=== PATIENT | male | born 1950 | race Caucasian/White ===

== ENCOUNTER → 2021-04-27 09:49 | Outpatient (BNVA) | payer MEDICARE, MEDICAID, SELFPAY | PROVIDERS: Family Provider Nurse Practitioner; Visit Provider Family Medicine | DX: E78.5 Hyperlipidemia, unspecified (principal); I10 Essential (primary) hypertension; J44.9 Chronic obstructive pulmonary disease, unspecified; M19.90 Unspecified osteoarthritis, unspecified site; G47.00 Insomnia, unspecified | CPT/HCPCS: 80053; 80061; 82043; 85025 ==

== ENCOUNTER → 2021-06-11 11:34 | Outpatient (BNVA) | payer MEDICARE, MEDICAID, SELFPAY | PROVIDERS: Family Provider Nurse Practitioner; PCP Family Medicine; Visit Provider Internal Medicine Cardiovascular Disease | DX: R06.02 Shortness of breath (principal); I50.33 Acute on chronic diastolic (congestive) heart failure; R06.00 Dyspnea, unspecified | CPT/HCPCS: 80048; 83880 ==

== ENCOUNTER 2021-07-16 12:30 | Outpatient (CLI) | payer MEDICARE, MEDICAID, SELFPAY ==
--- NOTE | 2021-07-16 13:30 | USCV_ITS ---
Maximiliano Howard Age: 70 Gender: M : 1950 Exam Date: 07/16/2021 12:50 Ordering Phys: Sasha Gordon MD ([email or web address]) Technologist: Exam Location: [facility] [place] Indication: DYSPNEA BP: 142 / 74 HR: 92 Rhythm: Sinus Technical Quality: Technically difficult study MEASUREMENTS (Male / Female) Normal Values 2D ECHO LV Diastolic Diameter PLAX 4.2 cm 4.2 - 5.9 / 3.9 - 5.3 cm LV Systolic Diameter PLAX 2.6 cm IVS Diastolic Thickness 1.3 cm 0.6 - 1.0 / 0.6 - 0.9 cm IVS Systolic Thickness 1.7 cm LVPW Diastolic Thickness 1.1 cm 0.6 - 1.0 / 0.6 - 0.9 cm LVPW Systolic Thickness 1.7 cm LVOT Diameter 2.1 cm LV Ejection Fraction 2D Teich 67.4 % LA Diameter 2.9 cm DOPPLER AV Peak Velocity 131.0 cm/s LVOT Peak Velocity 65.0 cm/s AV Area Cont Eq vti 1.4 cm squared AV Area Cont Eq pk 1.7 cm squared MV Area PHT 5.0 cm squared Mitral E to A Ratio 0.9 MV E' Velocity 43.0 cm/s TR Peak Velocity 267.0 cm/s TR Peak Gradient 28.5 mmHg Right Atrial Pressure 3.0 mmHg Pulmonary Artery Systolic Pressu 31.5 mmHg FINDINGS Left Ventricle Normal LV size with a diminished ejection fraction of 45%. Diffuse hypokinesia of the septum and the anteroseptal segments. Technically difficult study only epigastric views are obtained. Mild concentric left ventricular hypertrophy Right Ventricle Normal RV size ejection fraction.catheter/pacemaker wire visualized in the right ventricle. Right Atrium Catheter/pacemaker wire in the right atrial cavity. Left Atrium Normal left atrial size Mitral Valve No gross abnormalities noted Aortic Valve No gross abnormalities noted Tricuspid Valve No gross abnormalities noted Pulmonic Valve Structurally normal pulmonic valve without significant stenosis. There is no pulmonic regurgitation. Pericardium Left-sided pleural effusion is present. No pericardial effusion Aorta Normal ascending aorta dimension. CONCLUSIONS Normal LV size with a diminished ejection fraction of 45%. Diffuse hypokinesia of the septum and the anteroseptal segments. Mild concentric left ventricular hypertrophy Pacemaker wire was noted in the right atrium and right ventricle. Possible left-sided pleural effusion No intracardiac masses or pericardial effusion. No previous studies are available for comparison Dr Sasha Gordon MD [facility] (Electronically Signed) Final Date: 16 July 2021 22:41 S
== END 2021-07-16 12:31 | disposition home or self-care (01) ==
PROVIDERS: PCP Family Medicine; Visit Provider Internal Medicine Cardiovascular Disease
DX: R06.00 Dyspnea, unspecified (principal); R06.02 Shortness of breath; Z95.0 Presence of cardiac pacemaker; I51.7 Cardiomegaly
CPT/HCPCS: 93306

== ENCOUNTER 2021-09-29 07:03 | Outpatient (CLI) | payer MEDICARE, MEDICAID, SELFPAY ==
--- NOTE | 2021-09-29 07:44 | NMCV_ITS ---
NM jane perf SPECT r/s* [id number] Maximiliano Howard Age: 70 Gender: M : 1950 Exam Date: 09/29/2021 09:06 Ordering Phys: Sasha Gordon MD ([email or web address]) Technologist: SHERRILL De Jesus Exam Location: [facility] Indications: SOB STRESS TEST Please see separate stress test report in [facility]any for full findings IMAGE PROTOCOL Rest/Stress 1 Lexiscan Day Radiopharmaceutical Dose (mCi) Administration Site Administered by Rest: Tc-99m 10.9 IV SHERRILL De Jesus Sestamibi Stress:Tc-99m 32.6 IV SHERRILL De Jesus Sestamikuldeep Rest: 29-Sep-2021 60 Discovery 630 Stress: 29-Sep-2021 45 Discovery 630 0.4mg Lexiscan. Supine position only as patient was unable to lay prone. SPECT RESULTS Technical Quality: Excellent Raw Data Analysis: Normal Image Corrections: No attenuation or motion correction applied Summed Stress Score: 6 Summed Rest Score: 8 Summed Difference Score: 1 PERFUSION FINDINGS Moderate area of decreased tracer uptake was noted in the basal, mid and apical inferior, mid anteroseptal and apical segments. A subtle area of reversibility was noted in the apical anterior region FUNCTIONAL RESULTS (calculated via Gated SPECT) Stress Image LV EF (%): 49 Stress EDV (mL):101 TID: 1.05 Stress ESV (mL):52 FUNCTIONAL FINDINGS: Segmental wall motion analysis revealed moderate hypokinesia of the apex with mild hypokinesia of the septum IMPRESSIONS 1. Myocardial perfusion imaging revealing moderate area of persistent decreased tracer uptake in the inferior, mid anteroseptal and apical regions with a subtle area reversibility in the apical anterior region suggesting myocardial scarring in the region of the left anterior descending and right coronary arteries with a very small area of liberty-infarction ischemia in the distribution of the left anterior descending artery. 2. Slightly diminished LV ejection fraction of 49% 3. Segmental wall motion abnormalities as mentioned above 4. LV cavity appears to be mildly dilated with an LV end-diastolic volume of 52 mL. No similar previous studies are available for comparison Dr Sasha Gordon MD [facility] (Electronically Signed) Final Date: 29 September 2021 13:55 S
--- NOTE | 2021-09-29 07:44 | ECG_ITS ---
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 Interpretive Statements NAME OF STUDY: LEXISCAN SESTAMIBI STRESS TEST INDICATION: Abnormal Echo PROCEDURE: At the baseline, the EKG revealed 100% a sensed, V paced rhythm. The baseline blood pressure was 138/82 mm Hg with a heart rate of 69 beats/min. Lexiscan was infused over a period of 20 seconds. A total of 0.4 milligrams of Lexiscan was infused. The stress phase was continued for a total of 5 minutes. Heart rate at the end of the stress phase was 88 with a blood pressure 144/69. The EKG at the peak infusion revealed no significant changes few PACs and short runs of PAT's were noted. Sestamibi was injected 20 seconds after the Lexiscan infusion. Blood pressure at the end of the recovery phase was 138/71 with a heart rate of 82 per minute. CONCLUSION: 1. No significant EKG changes with the LexiScan infusion 2. No LexiScan induced atrial arrhythmias were noted. 3. Normal blood pressure and heart rate response 4. Sestamibi/sestamibi perfusion scan pending; see separate report. Electronically Signed On 10-02-2021 11:47:06 PLASTIC STRAIGHTENING ROLL OPERATOR by Sasha Gordon M.D. [id number]
[2021-09-29 07:48] VITALS: BMI 17.1
[2021-09-29] MEDS: regadenoson 0.4 Mg/5 ml Syringe IVP (10:30)
[2021-09-29 10:53] VITALS: BP 136/71; PULSE 64
== END 2021-09-29 07:04 | disposition home or self-care (01) ==
LOC: RAD 07:12 → CDL 07:48
PROVIDERS: PCP Family Medicine; Visit Provider Internal Medicine Cardiovascular Disease
DX: R06.02 Shortness of breath (principal)
CPT/HCPCS: 78452; 93017; A9500; J2785

== ENCOUNTER 2021-11-21 18:12 | Emergency (ER) | payer MEDICARE, MEDICAID, SELFPAY ==
[2021-11-21 18:22] VITALS: BP 147/93; PULSE 61; RESP 18; TEMP 37.1; O2SAT 99; BMI 17.7
[2021-11-21 18:32] VITALS: BP 145/80; PULSE 70; RESP 19; O2SAT 93
--- NOTE | 2021-11-21 19:02 | CTR_ITS ---
PROCEDURE INFORMATION: Exam: CT Head Without Contrast Exam date and time: 11/21/2021 7:02 PM Age: 71 years old Clinical indication: Injury or trauma; Blunt trauma (contusions or hematomas); Without loss of consciousness; Patient HX: Fall from standing; Additional info: Syncope fall TECHNIQUE: Imaging protocol: Computed tomography of the head without contrast. Radiation optimization: All CT scans at this facility use at least one of these dose optimization techniques: automated exposure control; mA and/or kV adjustment per patient size (includes targeted exams where dose is matched to clinical indication); or iterative reconstruction. COMPARISON: CT head wo con* [id number] 07/12/2017 9:38 AM RADIATION DOSE METRICS: Total DLP (mGy-cm): 891.66 FINDINGS: Brain: No hemorrhage. Mild diffuse cerebral atrophy and sequela of chronic small vessel ischemic disease. No mass effect. Cerebral ventricles: No ventriculomegaly. Paranasal sinuses: Visualized sinuses are unremarkable. No fluid levels. Mastoid air cells: Visualized mastoid air cells are well aerated. Bones/joints: Unremarkable. No acute fracture. Soft tissues: Unremarkable. CT/CT head wo con* [id number] IMPRESSION: No acute intracranial abnormality.
--- NOTE | 2021-11-21 19:02 | CTR_ITS ---
PROCEDURE INFORMATION: Exam: CT Cervical Spine Without Contrast Exam date and time: 11/21/2021 7:02 PM Age: 71 years old Clinical indication: Injury or trauma; Blunt trauma; Patient HX: Fall from standing TECHNIQUE: Imaging protocol: Computed tomography images of the cervical spine without contrast. Radiation optimization: All CT scans at this facility use at least one of these dose optimization techniques: automated exposure control; mA and/or kV adjustment per patient size (includes targeted exams where dose is matched to clinical indication); or iterative reconstruction. COMPARISON: CT head wo con* [id number] 11/21/2021 8:27 PM RADIATION DOSE METRICS: Total DLP (mGy-cm): 357.43 FINDINGS: Bones/joints: No acute fracture. Grade 1 anterolisthesis of C4 on C5. Discs/Spinal canal/Neural foramina: No significant disc protrusion. No severe spinal canal stenosis. Lungs: Bullous emphysematous changes at the lung apices. Soft tissues: Unremarkable. CT/CT cervical spin wo con* [id number] IMPRESSION: No acute findings.
--- NOTE | 2021-11-21 19:02 | CTR_ITS ---
PROCEDURE INFORMATION: Exam: CT Chest With Contrast; Diagnostic Exam date and time: 11/21/2021 7:02 PM Age: 71 years old Clinical indication: Injury or trauma; Upper; Blunt trauma (contusions or hematomas); Prior surgery; Surgery date: 6+ months; Surgery type: Pacer , lung , hernia; Patient HX: Fall from standing C/O L back/flank pain; Additional info: Fall upper and lower back left flank pain TECHNIQUE: Imaging protocol: Diagnostic computed tomography of the chest with contrast. Radiation optimization: All CT scans at this facility use at least one of these dose optimization techniques: automated exposure control; mA and/or kV adjustment per patient size (includes targeted exams where dose is matched to clinical indication); or iterative reconstruction. Contrast material: OMNI 300; Contrast volume: 75 ml; Contrast route: INTRAVENOUS (IV); COMPARISON: CT Chest/Abdomen/Pelvis w IV* 07/12/2017 9:43 AM RADIATION DOSE METRICS: Total DLP (mGy-cm): 1157.89 FINDINGS: Tubes, catheters and devices: Pacemaker. Lungs: Emphysematous changes. Right upper lobe 9.2 mm pulmonary nodule, new compared to prior exam, series 2, image 24. Bilateral dependent emphysematous changes. Stable right upper lobe calcified granuloma. Biapical pleuroparenchymal scarring Pleural spaces: Trace left pleural effusion. Heart: Coronary artery atherosclerotic calcifications. Aorta: Ascending thoracic aorta somewhat prominent measuring 3.8 cm. Lymph nodes: Unremarkable. No enlarged lymph nodes. Bones/joints: Unremarkable. No acute fracture. Soft tissues: Unremarkable. Chest at 3 months, PET/CT, or biopsy. (Reference: Chela) 6. Bilateral dependent emphysematous changes. 7. Pacemaker. 8. Coronary artery atherosclerotic calcifications. REFERENCES: Chela Potts et al. Guidelines for Management of Incidental Pulmonary Nodules Detected on CT Images: From the Fleischner Society 2017. Radiology. 2017;284(1):228-243. PROCEDURE INFORMATION: Exam: CT Abdomen And Pelvis With Contrast Exam date and time: 11/21/2021 7:02 PM Age: 71 years old Clinical indication: Injury or trauma; Upper; Blunt trauma (contusions or hematomas); Prior surgery; Surgery date: 6+ months; Surgery type: Pacer , lung , hernia; Patient HX: Fall from standing C/O L back/flank pain; Additional info: Fall upper and lower back left flank pain TECHNIQUE: Imaging protocol: Computed tomography of the abdomen and pelvis with contrast. Radiation optimization: All CT scans at this facility use at least one of these dose optimization techniques: automated exposure control; mA and/or kV adjustment per patient size (includes targeted exams where dose is matched to clinical indication); or iterative reconstruction. Contrast material: OMNI 300; Contrast volume: 75 ml; Contrast route: INTRAVENOUS (IV); COMPARISON: CT Chest/Abdomen/Pelvis w IV* 07/12/2017 9:43 AM RADIATION DOSE METRICS: Total DLP (mGy-cm): 1157.89 FINDINGS: Liver: Normal. No mass. Gallbladder and bile ducts: Normal. No calcified stones. No ductal dilation. Pancreas: Normal. No ductal dilation. Spleen: Normal. No splenomegaly. Adrenal glands: Normal. No mass. Kidneys and ureters: Bilateral renal cysts, negative for follow-up advised. Stomach and bowel: Unremarkable. No obstruction. No mucosal thickening. Appendix: No evidence of appendicitis. Intraperitoneal space: Unremarkable. No free air. No significant fluid collection. Vasculature: Unremarkable. No abdominal aortic aneurysm. Lymph nodes: Unremarkable. No enlarged lymph nodes. Urinary bladder: Unremarkable as visualized. Reproductive: Unremarkable as visualized. Bones/joints: Unremarkable. No acute fracture. Soft tissues: Unremarkable. CT/CT chest abd pel w con* IMPRESSION: 1. Negative for traumatic injury to the chest 2. Ascending thoracic aorta somewhat prominent measuring 3.8 cm. 3. Trace left pleural effusion. 4. Emphysematous changes. 5. Right upper lobe 9.2 mm pulmonary nodule, new compared to prior exam, series 2, image 24. For both low risk and high risk patients, consider CT IMPRESSION: 1. Negative for traumatic injury to the abdomen or pelvis. 2. Bilateral renal cysts, negative for follow-up advised.
--- NOTE | 2021-11-21 19:03 | ECG_ITS ---
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 Measurements Intervals [place] Rate: 68 P: 84 AL: 187 QRS: -83 QRSD: 173 T: 85 QT: 462 QTc: 495 Interpretive Statements A sense V paced rhythm ELECTRONIC VENTRICULAR PACEMAKER ABNORMAL RHYTHM ECG Compared to ECG 11/05/2015 11:57:08 No significant changes Electronically Signed On 11-22-2021 12:08:43 PASSENGER RELATIONS REPRESENTATIVE by China Donnelly M.D. [id number]
[2021-11-21 19:11] LABS: Basophils # 0.1 10^3/uL (0.0-0.1); Basophils % 0.8 %; Eosinophils # 0.1 10^3/uL (0.0-0.8); Eosinophils % 1.4 %; Hematocrit 45.1 % (42.0-52.0); Hemoglobin 14.8 g/dL (11.7-16.6); Lymphocytes # 1.6 10^3/uL (0.8-4.8); Lymphocytes % 18.4 %; Mean Corpuscular HGB Conc 32.8 g/dL (30.0-36.0); Mean Corpuscular Hemoglobin 32.9 pg (28.0-34.0); Mean Corpuscular Volume 100.2 fl (80-94); Mean Platelet Volume 10.5 fL (7.4-10.4); Neutrophils # 5.92 10^3/uL (1.8-7.7); Neutrophils % 67.7 %; Nucleated Red Blood Cells % 0 %; Platelet Count 204 10^3/cmm (130-400); Red Cell Distribution Width 13.3 % (12.1-15.1); White Blood Count 8.7 10^3/uL (4.0-10.0)
[2021-11-21 19:22] VITALS: RESP 18; O2SAT 96
[2021-11-21] MEDS: morphine 4 mg/mL SDV 1 mL IVP (19:22)
[2021-11-21] MEDS: ondansetron 2 mg/ML SDV 2 mL 4 MG IVP (19:22)
[2021-11-21 19:24] LABS: Troponin(5th) Baseline 10 ng/L (0-15)
[2021-11-21 19:27] LABS: Albumin Level 4.2 g/dL (3.5-5.2); Alcohol Level 177 mg/dL (0-10); Alkaline Phosphatase 72 IU/L (40-130); Blood Urea Nitrogen 6 mg/dL (8-23); Calcium 9.5 mg/dL (8.5-10.5); Carbon Dioxide 29 mmol/L (22-29); Chloride 92 mmol/L (98-107); Globulin 3.8 g/dL (1.3-4.6); Glucose 90 mg/dL (65-115); Magnesium 2.2 mg/dL (1.7-2.3); Osmolality Calculated 273 mOsm/kg (285-295); Sodium 133 mmol/L (136-145); Total Bilirubin 0.4 mg/dL (0.15-1.2)
[2021-11-21 19:29] LABS: Alanine Aminotransferase 15 U/L (0-41); Anion Gap 17.1 (5-19); Aspartate Amino Transferase 32 U/L (0-40); Potassium 5.1 mmol/L (3.5-5.1)
[2021-11-21 19:39] VITALS: BP 118/61; PULSE 72; RESP 18; O2SAT 97
[2021-11-21] MEDS: iohexol 300 mg/mL 100 mL Btl IV (20:34)
--- NOTE | 2021-11-21 21:03 | ECG_ITS ---
[facility] Test Date: 2021-11-21 Pat Name: Maximiliano Howard Department: Room: Gender: Male Operating Room Registered Nurse: : 1950 Requested By: Kun Birch Order Number: [id number] Turner MD: China Donnelly M.D. Measurements Intervals [place] Rate: 84 P: 70 RI: 188 QRS: -83 QRSD: 165 T: 86 QT: 434 QTc: 515 Interpretive Statements A sense V paced rhythm ELECTRONIC VENTRICULAR PACEMAKER ABNORMAL RHYTHM ECG Compared to ECG 11/21/2021 19:27:48 No significant changes Electronically Signed On 11-22-2021 12:17:29 CALL CENTER RECEPTIONIST by China Donnelly M.D. [id number]
[2021-11-21 21:17] LABS: Troponin 5 2HR 11.48 ng/L (0-15)
--- NOTE | 2021-11-21 21:37 | W.ED.FALL ---
HPI - Fall General: Chief Complaint: Fall Stated Complaint: BACK PAIN Time Seen by Provider: 11/21/21 18:42 Source: patient History of Present Illness: 71-year-old male who has a pacemaker placement for unknown cardiac disease. He also has COPD. He admits to drinking a bit of alcohol today. He went into his bedroom to take a shower, and noted that all of a sudden he was on the floor. He does not believe he fully lost consciousness, but cannot explain how he ended up on the floor. He hurt his left side of his mid back and lower back as well as his flank, and could not move due to pain. Pain is improved somewhat on exam. He does not believe he hit his head. He is not on anticoagulants. He denied any chest discomfort, nausea, diaphoresis prior to his episode. He notes that he has not been ill otherwise recently. MD complaint: fall and other Onset (ago): minute(s) Fall from: standing Fall witnessed: no Place fall occurred: home Loss of consciousness: None Prolonged down time: no Symptoms prior to fall: none Context: other Location of injury: chest, back and abdomen Quality: stabbing and aching Associated symptoms-after fall: Reports chest pain; Denies abdominal pain, confusion, headache(s), lightheadedness, neck pain, short of breath, vertigo or weakness Review of Systems Const: Denies: fever(s) Eyes: Denies: change in vision ENMT: Denies: throat pain Card: Reports: chest pain; Denies: lightheadedness Resp: Reports: productive cough (Chronic); Denies: dyspnea or non-productive cough GI: Denies: abdominal pain or vomiting : Reports: flank pain Musc: Denies: neck pain Neuro: Denies: headache(s), vertigo or confusion PFSH ED PFSH: Medical History Allergic rhinitis Atrial arrhythmia Benign essential HTN COPD (chronic obstructive pulmonary disease) CVA (cerebral vascular accident) Dyslipidemia Hx of cardiac pacemaker Hypertension Insomnia KYLAH (obstructive sleep apnea) Osteoarthritis Pacemaker Shortness of breath Smoking Surgical History History of ear surgery History of inguinal hernia repair Right History of lung surgery Right lung repair Family History Family/Other Cancer Patient had 2 nephews pass away of cancer Brother Cancer Other Hypertension Denies family history of Diabetes CAD (coronary artery disease) Clotting disorder Dementia Chronic kidney disease (CKD) Suicide Anesthesia complication Bleeding disorder Lung disease Stroke Social History Smoking and tobacco status: current every day smoker Quit status (tobacco): considering quitting Alcohol intake: current Alcohol intake frequency: 0-2 Drinks per Day Lives independently: No Household members: family Housing: House Marital status: Legally Number of children: 3 Number of grandchildren: 8 Highest education level completed: 9th Grade service: No Current occupational status: retired Physical Exam Const: GENERAL APPEARANCE: cooperative and frail appearing (Mildly); not ill appearing NUTRITIONAL APPEARANCE: thin ORIENTATION/CONSCIOUSNESS: Yes awake, Yes oriented to person and Yes oriented to time; not confused HENMT: COMMON NORMALS: normocephalic, atraumatic and Normal external nose present HEAD & SCALP: normocephalic and atraumatic FACE & SINUS: normal facial exam NOSE: Normal external nose present Eye: COMMON NORMALS: Equal, round and reactive pupils present and EOMs intact bilaterally PUPIL: Yes Equal, round and reactive pupils present Neck/C-Spine: COMMON NORMALS: full ROM GENERAL: Yes normal visual inspection and No tender Chest: COMMONS NORMALS: normal inspection of the chest CHEST: Yes tenderness (left side of chest) Resp: COMMON NORMALS: normal respiratory effort, No use of accessory muscles and clear to auscultation bilaterally AUSCULTATION: clear to auscultation bilaterally Cardio: COMMON NORMALS: regular rate and regular rhythm RATE: regular rate RHYTHM: regular rhythm GI: COMMON NORMALS: Normal to inspection, nondistended, normoactive bowel sounds present and Soft to palpation PALPATION: Yes Soft to palpation : BLADDER/KIDNEY EXAM: Yes CVA tenderness on the left Back/Pelvis: GENERAL BACK: Yes CVA tenderness Neuro: SENSORIUM/ORIENTATION: Yes oriented to person and Yes oriented to time Psych: COMMON NORMALS: mental status grossly normal and cooperative Course Vital Signs: Vital signs: Vital Signs Temperature 98.7 F 11/21/21 18:22 Pulse Rate 72 11/21/21 19:39 Respiratory Rate 18 11/21/21 19:39 Blood Pressure 118/61 11/21/21 19:39 Pulse Oximetry 97 11/21/21 19:39 MDM - Fall Medical Decision Making Unknown whether this patient had a syncopal episode or not. He is intoxicated. His EKG shows electronic pacing that appears appropriate. His blood pressure is normal at 118/61. Heart rate 87, oxygen saturations are 90% on room air. He does not use oxygen at home. His sodium is 133. Alcohol 177. First troponin is 10 with repeat 2-hour 11.5. The patient never had any chest pain. CTs of the head C-spine chest abdomen and pelvis are essentially negative for any traumatic injury. There is a new pulmonary nodule which will need to be followed by his PCP. He will be discharged home. Lab Data : 11/21/21 18:41 11/21/21 18:41 Radiology Impressions Cervical Spine CT 11/21/21 19:02 IMPRESSION: No acute findings. Chest/Abdomen/Pelvis CT 11/21/21 19:02 IMPRESSION: 1. Negative for traumatic injury to the chest 2. Ascending thoracic aorta somewhat prominent measuring 3.8 cm. 3. Trace left pleural effusion. 4. Emphysematous changes. 5. Right upper lobe 9.2 mm pulmonary nodule, new compared to prior exam, series 2, image 24. For both low risk and high risk patients, consider CT IMPRESSION: 1. Negative for traumatic injury to the abdomen or pelvis. 2. Bilateral renal cysts, negative for follow-up advised. Head CT 11/21/21 19:02 IMPRESSION: No acute intracranial abnormality. Laboratory Results WBC 8.7 10^3/uL (4.0-10.0) 11/21/21 18:41 RBC 4.50 10^6/uL (4.1-5.3) 11/21/21 18:41 Hgb 14.8 g/dL (11.7-16.6) 11/21/21 18:41 Hct 45.1 % (42.0-52.0) 11/21/21 18:41 MCV 100.2 fl (80-94) H 11/21/21 18:41 MCH 32.9 pg (28.0-34.0) 11/21/21 18:41 MCHC 32.8 g/dL (30.0-36.0) 11/21/21 18:41 RDW 13.3 % (12.1-15.1) 11/21/21 18:41 Plt Count 204 10^3/cmm (130-400) 11/21/21 18:41 MPV 10.5 fL (7.4-10.4) H 11/21/21 18:41 Neut % (Auto) 67.7 % 11/21/21 18:41 Lymph % (Auto) 18.4 % 11/21/21 18:41 [place] % (Auto) 11.0 % 11/21/21 18:41 Eos % (Auto) 1.4 % 11/21/21 18:41 Baso % (Auto) 0.8 % 11/21/21 18:41 Neut # (Auto) 5.92 10^3/uL (1.8-7.7) 11/21/21 18:41 Lymph # (Auto) 1.6 10^3/uL (0.8-4.8) 11/21/21 18:41 [place] # (Auto) 1.0 10^3/uL (0.2-0.9) H 11/21/21 18:41 Eos # (Auto) 0.1 10^3/uL (0.0-0.8) 11/21/21 18:41 Baso # (Auto) 0.1 10^3/uL (0.0-0.1) 11/21/21 18:41 Nucleated RBC % (auto) 0 % 11/21/21 18: Nucleated RBCs # 0.0 /100WBC 11/21/21 18:41 Sodium 133 mmol/L (136-145) L 11/21/21 18:41 Potassium 5.1 mmol/L (3.5-5.1) 11/21/21 18:41 Chloride 92 mmol/L (98-107) L 11/21/21 18:41 Carbon Dioxide 29 mmol/L (22-29) 11/21/21 18:41 Anion Gap 17.1 (5-19) 11/21/21 18:41 BUN 6 mg/dL (8-23) L 11/21/21 18:41 Creatinine 0.3 mg/dL (0.7-1.2) L 11/21/21 18:41 GFR Calculation Not Reportable 11/21/21 18:41 Glucose 90 mg/dL (65-115) 11/21/21 18:41 Calculated Osmolality 273 mOsm/kg (285-295) L 11/21/21 18:41 Calcium 9.5 mg/dL (8.5-10.5) 11/21/21 18:41 Magnesium 2.2 mg/dL (1.7-2.3) 11/21/21 18:41 Total Bilirubin 0.4 mg/dL (0.15-1.2) 11/21/21 18:41 AST 32 U/L (0-40) 11/21/21 18:41 ALT 15 U/L (0-41) 11/21/21 18:41 Alkaline Phosphatase 72 IU/L (40-130) 11/21/21 18:41 Troponin T Baseline 10 ng/L (0-15) 11/21/21 18:41 Troponin T 120 Minute 11.48 ng/L (0-15) 11/21/21 20:48 Delta Troponin T Not Reportable 11/21/21 20:48 Total Protein 8.0 g/dL (6.6-8.7) 11/21/21 18:41 Albumin 4.2 g/dL (3.5-5.2) 11/21/21 18:41 Globulin 3.8 g/dL (1.3-4.6) 11/21/21 18:41 Ethyl Alcohol 177 mg/dL (0-10) H 11/21/21 18:41 Discharge Plan Discharge Patient Disposition: Home Clinical Impression: Alcohol intoxication, Contusion of flank and back Condition: Stable Prescriptions: New hydrocodone-acetaminophen 5-325 mg tablet 1 tab PO Q8H PRN (Reason: pain) Qty: 7 0RF No Action albuterol sulfate 90 mcg/actuation HFA aerosol inhaler 2 puff inhalation QID PRN (Reason: shortness of breath or wheezing) Qty: 8.5 5RF albuterol sulfate 2.5 mg /3 mL (0.083 %) solution for nebulization 2.5 mg inhalation QID PRN (Reason: shortness of breath or wheezing) Qty: 90 5RF Trelegy Ellipta 100-62.5-25 mcg blister with device 1 inh inhalation DAILY Qty: 60 5RF celecoxib 200 mg capsule 200 mg PO DAILY Qty: 90 1RF cetirizine 10 mg tablet 10 mg PO DAILY Qty: 90 1RF lisinopril 5 mg tablet 5 mg PO DAILY Qty: 90 1RF metoprolol succinate 25 mg tablet extended release 24 hr 25 mg PO DAILY Qty: 90 1RF simvastatin 20 mg tablet 20 mg PO DAILY Qty: 90 1RF trazodone 50 mg tablet 50 mg PO DAILY Qty: 90 1RF Discharge Orders: Discharge ED (Routine); Ordered 11/21/21 Ordered By: Kun Starkey Referrals: Carlie Hussein DO [Primary Care Provider] - 4-7 days Patient Instructions: Alcohol Intoxication (ED), Contusion in Adults (ED), Opioid Safety Activity Restrictions/Additional Instructions: Return for worsening pain despite treatment, vomiting liquids or medications, mental status changes, any other concerning symptoms. Abstain from alcohol, especially while using pain medication. Follow-up with your doctor. Coding Level of Care Code ED Palliative Care Physician for Aurelianog Fwd Exam Comprehensive
[2021-11-21 22:45] VITALS: BP 118/61; PULSE 102; RESP 20; O2SAT 94
== END 2021-11-21 22:46 | disposition home or self-care (01) ==
PROVIDERS: Emergency Provider Emergency Medicine; PCP Family Medicine
DX: S30.0XXA Contusion of lower back and pelvis, initial encounter (principal); S30.1XXA Contusion of abdominal wall, initial encounter; F10.129 Alcohol abuse with intoxication, unspecified; Y90.6 Blood alcohol level of 120-199 mg/100 ml; J44.9 Chronic obstructive pulmonary disease, unspecified; I10 Essential (primary) hypertension; Z86.73 Personal history of transient ischemic attack (TIA), and cerebral infarction without residual deficits; E78.5 Hyperlipidemia, unspecified; Z95.0 Presence of cardiac pacemaker; F17.210 Nicotine dependence, cigarettes, uncomplicated; W18.30XA Fall on same level, unspecified, initial encounter
CPT/HCPCS: 36415; 70450; 71260; 72125; 74177; 80053; 80307; 83735; 84484; 85025; 93005; 96374; 96375; 99284; J2270; J2405; Q9967

== ENCOUNTER → 2021-12-03 09:48 | Outpatient (BNVA) | payer MEDICARE, MEDICAID, SELFPAY | PROVIDERS: PCP Family Medicine; Visit Provider Internal Medicine Cardiovascular Disease | DX: R06.02 Shortness of breath (principal); I11.0 Hypertensive heart disease with heart failure; I50.33 Acute on chronic diastolic (congestive) heart failure; R06.00 Dyspnea, unspecified; Z95.0 Presence of cardiac pacemaker; E78.5 Hyperlipidemia, unspecified; J43.1 Panlobular emphysema; F17.200 Nicotine dependence, unspecified, uncomplicated | CPT/HCPCS: 36415; 80048; 83880; 99214 ==

== ENCOUNTER 2021-12-16 08:26 | Outpatient (CLI) | payer MEDICARE, MEDICAID, SELFPAY ==
[2021-12-16 10:08] LABS: Anion Gap 17.8 (5-19); Blood Urea Nitrogen 11 mg/dL (8-23); Carbon Dioxide 23 mmol/L (22-29); Chloride 90 mmol/L (98-107); Glucose 103 mg/dL (65-115); Osmolality Calculated 262 mOsm/kg (285-295); Potassium 4.8 mmol/L (3.5-5.1); Sodium 126 mmol/L (136-145)
== END 2021-12-16 08:27 | disposition home or self-care (01) ==
LOC: LAB 08:29
PROVIDERS: PCP Family Medicine; Visit Provider Internal Medicine Cardiovascular Disease
DX: E78.5 Hyperlipidemia, unspecified (principal)
CPT/HCPCS: 80048

== ENCOUNTER 2021-12-30 13:12 | Outpatient (CLI) | payer MEDICARE, MEDICAID, SELFPAY ==
--- NOTE | 2021-12-30 13:30 | CT_ITS ---
WS: [id number] CT CHEST WITH INTRAVENOUS CONTRAST HISTORY: new pulmonary nodule TECHNIQUE: Contiguous 5 mm axial imaging performed on the thorax. Coronal and sagittal reformats are submitted. All CT scans at [facility] use at least one of these dose optimization techniques: automated exposure control; mA and/or kV adjustment per patient size (includes targeted exams where dose is matched to clinical indication); or iterative reconstruction. CONTRAST: Omnipaque 300; 95 mL IV. DLP: 620.01 mGy.cm COMPARISON: 11/21/2021, 07/12/2017 Lungs and central airway: Severe pulmonary hyperexpansion with large bulla blebs. Ovoid 9 mm slightly irregular nodule in the RIGHT upper lobe new since 07/12/2017. Identified on 11/21/2021 but no change in the short interval. No pneumonia. There is focal scarring with long-term stability in the posterio r LEFT upper lobe. Benign granuloma RIGHT upper lobe. Pleura: Normal. No pleural effusion. Heart and pericardium: Normal size. Pacemaker wires are evident in the RIGHT heart. No effusion. Mediastinum and juan j: Indeterminate but stable RIGHT hilar lymph node measuring 9 mm. No adenopathy i s identified. Vessels: Moderate atherosclerotic changes within the thoracic aorta. No aneurysm or dissection. Calci fication continues into the upper abdominal aorta. Heavy calcification is noted at the origin of the mesenteric arteries. Renal artery atherosclerotic changes. Chest wall and lower neck: No soft tissue masses. Upper abdomen: Atherosclerotic changes continue into the suprarenal aorta and proximal mesenteric art eries. No adrenal mass identified. The visualized liver is normal. Osseous structures: Nondisplaced LEFT lateral rib fractures are noted involving the fifth, seventh, e ighth and ninth ribs. CT/CT chest w con* [id number] IMPRESSION: 1. No interval change of the 9 mm new nodule in the RIGHT upper lobe since 11/21. Initial short interval would not expect a change. Recommend [address] follow-up. 2. Severe emphysema. 3. LEFT rib fractures or acute to subacute with evidence for healing involving the fifth, seventh, eighth and ninth ribs. No displacement. No underlying pneu mothorax. 4. Moderate atherosclerosis thoracic aorta with the atherosclerosis extending into the suprarenal aorta and the mesenteric arteries.
[2021-12-30] MEDS: iohexol 300 mg/mL 100 mL Btl IV (13:45)
== END 2021-12-30 13:13 | disposition home or self-care (01) ==
LOC: RAD 13:18
PROVIDERS: PCP Family Medicine; Visit Provider Family Medicine
DX: J43.9 Emphysema, unspecified (principal); R91.1 Solitary pulmonary nodule; I70.0 Atherosclerosis of aorta; S22.42XA Multiple fractures of ribs, left side, initial encounter for closed fracture; X58.XXXA Exposure to other specified factors, initial encounter
CPT/HCPCS: 71260

== ENCOUNTER 2023-07-31 19:00 | Emergency (ER) | payer MEDICARE, SELFPAY ==
[2023-07-31] VITALS (10 sets, daily range): BP systolic 126–150; BP diastolic 76–99; PULSE 51–66; RESP 16–20; O2SAT 90–96; BMI 19.2
--- NOTE | 2023-07-31 19:25 | XRR_ITS ---
PROCEDURE INFORMATION: Exam: XR Chest Exam date and time: 07/31/2023 7:37 PM Age: 72 years old Clinical indication: Shortness of breath; Patient HX: SOB; Smoker; HX afib w/ pacemaker TECHNIQUE: Imaging protocol: Radiologic exam of the chest. Views: 1 view. COMPARISON: CT chest w con* [id number] 12/30/2021 1:30 PM FINDINGS: Tubes, catheters and devices: There is a dual-lead cardiac pacer via left subclavian approach. Findings are stable. Lungs: Stable moderate hyperinflation of the lungs. No focal consolidation. No pulmonary edema. No focal consolidation. No pulmonary edema. Pleural spaces: There is fluid in the right minor fissure. Heart/Mediastinum: Stable mild enlargement of the cardiac silhouette. Mediastinal contours are unremarkable. Vasculature: Stable vascular calcifications in the aorta. Bones/joints: Unremarkable for age. XR/XR chest 1V portable [id number] IMPRESSION: 1. There is fluid in the right minor fissure. 2. Incidental/nonacute findings are listed in the report.
--- NOTE | 2023-07-31 19:26 | ECG_ITS ---
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 Measurements Intervals [place] Rate: 65 P: 70 OR: 175 QRS: -74 QRSD: 165 T: 83 QT: 438 QTc: 456 Interpretive Statements ELECTRONIC VENTRICULAR PACEMAKER ABNORMAL RHYTHM ECG INTERPRETATION BASED ON A DEFAULT AGE OF 40 YEARS Compared to ECG 11/21/2021 20:45:18 No significant changes Electronically Signed On 08-01-2023 8:09:40 DE ICER ELEMENT WINDER by China Donnelly M.D. [id number] f
--- NOTE | 2023-07-31 19:27 | W.ED.SOB ---
HPI - SOB/Dyspnea General: Chief Complaint: Shortness of Breath/Dyspnea Stated Complaint: SOB Time Seen by Provider: 07/31/23 19:11 History of Present Illness: HPI Narrative: 72-year-old male with complex medical history including COPD, CHF, atrial fibrillation, hyperlipidemia, CVA, hypertension, tobacco abuse and arthritis presents emergency room via EMS due to shortness of breath and wheezing. Patient has any chest pain, cough, coughing up blood or vomiting blood at this time. Patient reveals that he was given DuoNeb in route and the symptoms improved slightly. And currently wearing oxygen. Denies any sick contact or recent foreign travel. Denies any leg swelling, calf tenderness, fever or chills. Associated symptoms: Deny chest congestion, diaphoresis, fever(s) or hemoptysis Review of Systems General: Reports: 10 or more systems reviewed and unremarkable except in HPI and below Const: Denies: fever(s), chills, body aches, change in appetite, change in weight, fatigue, malaise, night sweats, diaphoresis, change in sleep pattern or daytime sleepiness Resp: Reports: dyspnea, non-productive cough and wheezing; Denies: pain on inspiration, change in phlegm color, hemoptysis or chest congestion PFSH ED PFSH: Medical History Allergic rhinitis Atrial arrhythmia Benign essential HTN COPD (chronic obstructive pulmonary disease) CVA (cerebral vascular accident) Dyslipidemia Hx of cardiac pacemaker Hypertension Insomnia KYLAH (obstructive sleep apnea) Osteoarthritis Pacemaker Shortness of breath Smoking Surgical History History of ear surgery History of inguinal hernia repair Right History of lung surgery Right lung repair Family History Family/Other Cancer Patient had 2 nephews pass away of cancer Brother Cancer Other Hypertension Denies family history of Diabetes CAD (coronary artery disease) Clotting disorder Dementia Chronic kidney disease (CKD) Suicide Anesthesia complication Bleeding disorder Lung disease Stroke Social History Smoking and tobacco/nicotine status: current every day tobacco/nicotine user Quit status (tobacco/nicotine): considering quitting Alcohol intake: current Alcohol intake frequency: 0-2 Drinks per Day Substance/Drug Use: never Lives independently: No Household members: family Housing: House Marital status: Legally Number of children: 3 Number of grandchildren: 8 Highest education level completed: 9th Grade service: No Current occupational status: retired Physical Exam Const: COMMON NORMALS: no acute distress, average body habitus, patient oriented x3, no limitations, healthy appearing, alert and well nourished Neck/C-Spine: COMMON NORMALS: no JVD Chest: COMMONS NORMALS: normal inspection of the chest, normal palpation of entire chest wall, normal inspection of the breasts and normal palpation of the breasts Breast/axilla inspection: Yes normal inspection of the breasts BREAST/AXILLA PALPATION: Yes normal palpation of the breasts Resp: EFFORT & INSPECTION: Yes able to speak in complete sentences AUSCULTATION: crackles and wheezes Cardio: COMMON NORMALS: no JVD, regular rate, regular rhythm, S1 normal heart sound present, S2 normal heart sound present, No gallops present (Cardio), No clicks present (Cardio), No murmurs present (Cardio), No rub (Cardio) and Peripheral pulses 2+ throughout RATE: regular rate RHYTHM: regular rhythm HEART SOUNDS: S1 normal heart sound present and S2 normal heart sound present PERIPHERAL PULSES: Peripheral pulses 2+ throughout Neuro: COMMON NORMALS: patient oriented x3 SENSORIUM/ORIENTATION: Yes alert Course Vital Signs: Vital signs: Vital Signs Pulse Rate 65 07/31/23 22:34 Respiratory Rate 16 07/31/23 22:34 Blood Pressure 132/81 07/31/23 22:34 Pulse Oximetry 94 07/31/23 22:34 Oxygen Delivery Me thod Nasal Cannula 07/31/23 22:12 Oxygen Flow Rate 2 07/31/23 22:12 MDM - SOB/Dyspnea Medical Decision Making Patient was made comfortable emergency room and had extensive work-up including CBC, CMP, BNP, cardiac enzymes and EKG with x-ray. Patient was given IV Lasix IV steroid and DuoNeb. She was reassessed multiple occasion and improved significantly with current treatment. Patient will be discharged home and close follow-up PCP recommended for further evaluation and treatment. Patient was told to continue his medication as directed. Differential Diagnosis Likely acute exacerbation of chronic obstructive airways disease, congestive heart failure, community acquired pneumonia, asthma with exacerbation and pulmonary embolism Lab Data 07/31/23 19:09 07/31/23 19:09 Labs/Radiology: Radiology Impressions Chest X-Ray 07/31/23 19:25 IMPRESSION: 1. There is fluid in the right minor fissure. 2. Incidental/nonacute findings are listed in the report. Laboratory Results WBC 8.61 10^3/uL (3.29-11.43) 07/31/23 19:09 RBC 4.11 10^6/uL (3.85-5.65) 07/31/23 19:09 Hgb 13.60 g/dL (11.27-16.99) 07/31/23 19:09 Hct 41.5 % (37-53) 07/31/23 19:09 MCV 101.0 fl (82-101) 07/31/23 19:09 MCH 33.1 pg (27-33) H 07/31/23 19:09 MCHC 32.8 g/dL (30-55) 07/31/23 19:09 RDW 14.0 % (12.1-15.1) 07/31/23 19:09 Plt Count 230 10^3/cmm (157-399) 07/31/23 19:09 MPV 10.2 fL (7.4-10.4) 07/31/23 19:09 Neut % (Auto) 68.9 % 07/31/23 19:09 Lymph % (Auto) 12.3 % 07/31/23 19:09 [place] % (Auto) 16.1 % 07/31/23 19:09 Eos % (Auto) 1.7 % 07/31/23 19:09 Baso % (Auto) 0.7 % 07/31/23 19:09 Neut # (Auto) 5.92 10^3/uL (1.8-7.7) 07/31/23 19:09 Lymph # (Auto) 1.1 10^3/uL (0.8-4.8) 07/31/23 19:09 [place] # (Auto) 1.4 10^3/uL (0.2-0.9) H 07/31/23 19:09 Eos # (Auto) 0.2 10^3/uL (0.0-0.8) 07/31/23 19:09 Baso # (Auto) 0.1 10^3/uL (0.0-0.1) 07/31/23 19:09 Nucleated RBC % (auto) 0 % 07/31/23 19:09 Nucleated RBCs # 0.0 /100WBC 07/31/23 19:09 Specimen Type Arterial 07/31/23 19:29 Sample Site Brachial, right 07/31/23 19:29 ABG pH 7.43 (7.35-7.45) 07/31/23 19:29 ABG pCO2 51.6 mmHg (35-45) H 07/31/23 19:29 ABG pO2 61.6 mmHg (80.0-100.0) L 07/31/23 19:29 ABG HCO3 33.9 mmol/L (22-26) H 07/31/23 19:29 ABG Base Excess 7.9 mmol/L (-2.0-2.0) H 07/31/23 19:29 Joesph Test N/a 07/31/23 19:29 Hematocrit 41.4 % (42-52) L 07/31/23 19:29 Hgb O2 Saturation 87.2 % (95-100) L 07/31/23 19:29 Carboxyhemoglobin 6.8 %THgb (0.4-20.1) 07/31/23 19:29 Methemoglobin 0.2 % (0.4-1.5) L 07/31/23 19:29 Total Hemoglobin 13.5 g/dL (14-18) L 07/31/23 19:29 O2 Delivery Device Nc 07/31/23 19:29 O2 Liters/Min 2.0 % 07/31/23 19:29 Janitorial Supervisor ID [email or web address] 07/31/23 19:29 Sodium 134 mmol/L (136-145) L 07/31/23 19:09 Potassium 4.3 mmol/L (3.5-5.1) 07/31/23 19:09 Chloride 96 mmol/L (98-107) L 07/31/23 19:09 Carbon Dioxide 31 mmol/L (22-29) H 07/31/23 19:09 Anion Gap 11.3 (5-19) 07/31/23 19:09 BUN 10 mg/dL (8-23) 07/31/23 19:09 Creatinine 0.5 mg/dL (0.7-1.2) L 07/31/23 19:09 GFR Calculation Not Reportable 07/31/23 19:09 Glucose 97 mg/dL (65-115) 07/31/23 19:09 Calculated Osmolality 277 mOsm/kg (285-295) L 07/31/23 19:09 Calcium 8.8 mg/dL (8.5-10.5) 07/31/23 19:09 Total Bilirubin 0.3 mg/dL (0.15-1.2) 07/31/23 19:09 AST 23 U/L (0-40) 07/31/23 19:09 ALT 19 U/L (0-41) 07/31/23 19:09 Alkaline Phosphatase 87 U/L (40-130) 07/31/23 19:09 Troponin T Baseline 11 ng/L (0-15) 07/31/23 19:09 Troponin T 120 Minute 11.13 ng/L (0-15) 07/31/23 21:23 Delta Troponin T 0.13 ABS# (0-10) 07/31/23 21:23 NT-Pro-B Natriuret Pep 2636 pg/mL (0-125) H 07/31/23 19:09 Total Protein 6.2 g/dL (6.6-8.7) L 07/31/23 19:09 Albumin 3.6 g/dL (3.5-5.2) 07/31/23 19:09 Globulin 2.6 g/dL (1.3-4.6) 07/31/23 19:09 XR interpretation done by ED provider, pending radiology final review EKG Data EKG 1: Interpretation: Paced rhythm with rate of [address] changes. WV interval 175 QRS duration 168 Discharge Plan Discharge Patient Disposition: Home Clinical Impression: SOB (shortness of breath), COPD (chronic obstructive pulmonary disease), Congestive heart failure Condition: Stable Prescriptions: New Medrol (Francois) 4 mg tablets,dose pack 4 mg PO DAILY Qty: 21 0RF No Action albuterol sulfate 90 mcg/actuation HFA aerosol inhaler 2 puff inhalation QID PRN (Reason: shortness of breath or wheezing) Qty: 8.5 5RF albuterol sulfate 2.5 mg /3 mL (0.083 %) solution for nebulization 2.5 mg inhalation QID PRN (Reason: shortness of breath or wheezing) Qty: 90 5RF Trelegy Ellipta 100-62.5-25 mcg blister with device 1 inh inhalation DAILY Qty: 60 5RF trazodone 50 mg tablet 50 mg PO DAILY Qty: 90 1RF furosemide [Lasix] 20 mg tablet 20 mg PO DAILY Qty: 90 3RF potassium chloride 8 mEq tablet extended release 8 meq PO DAILY Qty: 90 3RF losartan 25 mg tablet 25 mg PO DAILY Qty: 90 3RF metoprolol succinate 25 mg tablet extended release 24 hr 25 mg PO DAILY Qty: 90 3RF simvastatin 20 mg tablet 20 mg PO DAILY Qty: 90 3RF cetirizine 10 mg tablet 10 mg PO DAILY Qty: 90 1RF celecoxib 200 mg capsule See Rx Instructions .ROUTE .COMPLEX Qty: 14 0RF Dose Instruction: TAKE 1 CAPSULE BY MOUTH ONCE DAILY . APPOINTMENT REQUIRED FOR FUTURE REFILLS Rx Instructions: TAKE 1 CAPSULE BY MOUTH ONCE DAILY . APPOINTMENT REQUIRED FOR FUTURE REFILLS hydrocodone-acetaminophen 5-325 mg tablet 1 tab PO Q8H PRN (Reason: pain) Qty: 7 0RF Discharge Orders: Discharge ED (Routine); Ordered 07/31/23 Ordered By: Devika Nobles Referrals: Syl Lewis, MELTER LOADER [Primary Care Provider] - Discharge Diet: Advance as tolerated Discharge Activity: Resume usual activity Patient Instructions: Opioid Safety, Pain Management Coding Level of Care Code ED Medical Delivery Technician for Estelle Borthers
[2023-07-31 19:34] LABS: Basophils # 0.1 10^3/uL (0.0-0.1); Basophils % 0.7 %; Eosinophils # 0.2 10^3/uL (0.0-0.8); Eosinophils % 1.7 %; Hematocrit 41.5 % (37-53); Lymphocytes # 1.1 10^3/uL (0.8-4.8); Lymphocytes % 12.3 %; Mean Corpuscular HGB Conc 32.8 g/dL (30-55); Mean Corpuscular Hemoglobin 33.1 pg (27-33); Mean Platelet Volume 10.2 fL (7.4-10.4); Monocytes # 1.4 10^3/uL (0.2-0.9); Monocytes % 16.1 %; Neutrophils # 5.92 10^3/uL (1.8-7.7); Neutrophils % 68.9 %; Nucleated Red Blood Cells % 0 %; Platelet Count 230 10^3/cmm (157-399); Red Blood Count 4.11 10^6/uL (3.85-5.65); White Blood Count 8.61 10^3/uL (3.29-11.43)
[2023-07-31 19:40] LABS: ABG PCO2 51.6 mmHg (35-45); ABG PH Result 7.43 (7.35-7.45); Arterial Blood Gas Hematocrit 41.4 % (42-52); Base Excess ABG 7.9 mmol/L (-2.0-2.0); Blood Gas Sample Site Brachial, right; Blood Gas Sample Type Arterial; Carboxyhemoglobin 6.8 %THgb (0.4-20.1); HCO3 ABG 33.9 mmol/L (22-26); HGB O2 Sat 87.2 % (95-100); Methemoglobin 0.2 % (0.4-1.5); Oxygen Device NC; PO2 ABG 61.6 mmHg (80.0-100.0); Total Hemoglobin 13.5 g/dL (14-18)
[2023-07-31] MEDS: ipratropium-albuterol 3 mL Neb INHALATION (19:44)
[2023-07-31 19:47] LABS: Troponin(5th) Baseline 11 ng/L (0-15)
[2023-07-31 19:56] LABS: Alanine Aminotransferase 19 U/L (0-41); Albumin Level 3.6 g/dL (3.5-5.2); Alkaline Phosphatase 87 U/L (40-130); Aspartate Amino Transferase 23 U/L (0-40); Blood Urea Nitrogen 10 mg/dL (8-23); Calcium 8.8 mg/dL (8.5-10.5); Carbon Dioxide 31 mmol/L (22-29); Chloride 96 mmol/L (98-107); Globulin 2.6 g/dL (1.3-4.6); Glucose 97 mg/dL (65-115); NT Pro B Type Natriuretic Pept 2636 pg/mL (0-125); Osmolality Calculated 277 mOsm/kg (285-295); Sodium 134 mmol/L (136-145); Total Bilirubin 0.3 mg/dL (0.15-1.2); Total Protein 6.2 g/dL (6.6-8.7)
[2023-07-31 19:58] LABS: Anion Gap 11.3 (5-19); Potassium 4.3 mmol/L (3.5-5.1)
[2023-07-31] MEDS: FUROsemide 10 mg/mL SDV 4mL 40 MG IVP (21:33)
[2023-07-31 21:51] LABS: Troponin 5 2HR 11.13 ng/L (0-15); Troponin 5 2HR Delta 0.13 ABS# (0-10)
== END 2023-07-31 22:36 | disposition home or self-care (01) ==
PROVIDERS: Emergency Provider Family Medicine; PCP Registered Nurse
DX: J44.9 Chronic obstructive pulmonary disease, unspecified (principal); I11.0 Hypertensive heart disease with heart failure; I50.9 Heart failure, unspecified; Z72.0 Tobacco use; Z86.73 Personal history of transient ischemic attack (TIA), and cerebral infarction without residual deficits; E78.5 Hyperlipidemia, unspecified; Z95.0 Presence of cardiac pacemaker
CPT/HCPCS: 36415; 36600; 71045; 80053; 82805; 83880; 84484; 85025; 93005; 94640; 96374; 96375; 99285; J1940; J2930

== ENCOUNTER 2023-12-28 14:13 | Emergency (ER) | payer MEDICARE, SELFPAY ==
[2023-12-28] VITALS (7 sets, daily range): BP systolic 106–131; BP diastolic 68–83; PULSE 65; RESP 17–22; TEMP 36.7; O2SAT 91–99
--- NOTE | 2023-12-28 14:22 | ECG_ITS ---
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 Measurements Intervals [place] Rate: 65 P: 0 TN: 0 QRS: 268 QRSD: 156 T: 91 QT: 445 QTc: 463 Interpretive Statements ELECTRONIC VENTRICULAR PACEMAKER ABNORMAL RHYTHM ECG Compared to ECG 07/31/2023 19:32:58 No significant changes Electronically Signed On 12-28-2023 18:42:41 CDT by Sasha Gordon M.D. [id number] f
--- NOTE | 2023-12-28 14:22 | XRR_ITS ---
PROCEDURE INFORMATION: Exam: XR Chest Exam date and time: 12/28/2023 2:44 PM Age: 73 years old Clinical indication: Other: Weakness; Prior surgery; Surgery date: 6+ months; Surgery type: Pacer TECHNIQUE: Imaging protocol: Radiologic exam of the chest. Views: 1 view. COMPARISON: CR XR chest 1V portable [id number] 07/31/2023 7:37 PM FINDINGS: Tubes, catheters and devices: There is stable intact pacemaker hardware. Lungs: Lungs are hyperinflated but free of acute disease. Pleural spaces: Unremarkable. No pleural effusion. No pneumothorax. Heart/Mediastinum: Unremarkable. No cardiomegaly. Bones/joints: No acute findings. XR/XR chest 1V portable [id number] IMPRESSION: No acute findings.
--- NOTE | 2023-12-28 14:23 | ED_ITS ---
HPI - Weakness 2 General: Chief complaint: Weakness Stated complaint: Weakness Time Seen by Provider: 12/28/23 14:14 Source: patient Mode of arrival: ambulatory Limitations: no limitations History of Present Illness: 73-year-old male who has a history of [place] [employer] longtime smoker states he had some increased fatigue over the last 1 to 2 weeks he has had some increased dyspnea as well he is on his 2 L oxygen he wears at home and is not hypoxic and denies any vomiting or diarrhea denies any chest pain. Associated symptoms: Denies chest pain, chills, dysuria, fever(s), headache(s), nausea or vomiting Review of Systems 2 Const: Reports: fatigue; Denies: fever(s), chills, body aches or change in appetite Eyes: Denies: blurry vision or eye discomfort ENMT: Denies: throat pain or dental pain Card: Denies: chest pain Resp: Denies: dyspnea GI: Denies: abdominal pain, nausea, vomiting or diarrhea : Denies: dysuria Musc: Denies: neck pain or back pain Skin/Breast: Denies: rash Neuro: Denies: headache(s) PFSH ED 2 PFSH: Medical History Allergic rhinitis Atrial arrhythmia Benign essential HTN COPD (chronic obstructive pulmonary disease) CVA (cerebral vascular accident) Dyslipidemia Hx of cardiac pacemaker Hypertension Insomnia KYLAH (obstructive sleep apnea) Osteoarthritis Pacemaker Shortness of breath Smoking Surgical History History of ear surgery History of inguinal hernia repair Right History of lung surgery Right lung repair Family History Family/Other Cancer Patient had 2 nephews pass away of cancer Brother Cancer Other Hypertension Denies family history of Diabetes CAD (coronary artery disease) Clotting disorder Dementia Chronic kidney disease (CKD) Suicide Anesthesia complication Bleeding disorder Lung disease Stroke Social History Smoking and tobacco/nicotine status: current every day tobacco/nicotine user Quit status (tobacco/nicotine): considering quitting Alcohol intake: current Alcohol intake frequency: 0-2 Drinks per Day Substance/Drug Use: never Lives independently: No Household members: family Housing: House Marital status: Legally Number of children: 3 Number of grandchildren: 8 Highest education level completed: 9th Grade service: No Current occupational status: retired Physical Exam 2 Const: COMMON NORMALS: no acute distress, patient oriented x3 and healthy appearing HENMT: COMMON NORMALS: normocephalic and atraumatic HEAD & SCALP: n ormocephalic and atraumatic Eye: COMMON NORMALS: Equal, round and reactive pupils present PUPIL: Yes Equal, round and reactive pupils present Neck/C-Spine: COMMON NORMALS: full ROM and supple Chest: COMMONS NORMALS: normal inspection of the chest and normal palpation of entire chest wall Resp: COMMON NORMALS: normal respiratory effort, No retractions, No use of accessory muscles and clear to auscultation bilaterally AUSCULTATION: clear to auscultation bilaterally Cardio: COMMON NORMALS: regular rate, regular rhythm and No murmurs present (Cardio) RATE: regular rate RHYTHM: regular rhythm GI: COMMON NORMALS: Normal to inspection, nondistended, normoactive bowel sounds present, Soft to palpation, non-tender and no masses PALPATION: Yes Soft to palpation Extremity: COMMON NORMALS: normal to inspection and full ROM Neuro: COMMON NORMALS: patient oriented x3, moves all extremities and no focal motor deficits Psych: COMMON NORMALS: mental status grossly normal, Normal thought process present and cooperative THOUGHT PROCESS: Normal thought process present Skin: COMMON NORMALS: no rashes or lesions noted and no wounds GENERAL SKIN EXAM: no rashes or lesions noted Course 2 Vital Signs: Vital signs: Vital Signs Temperature 98.1 F 12/28/23 14:14 Pulse Rate 65 12/28/23 16:52 Respiratory Rate 22 H 12/28/23 14:52 Blood Pressure 124/75 12/28/23 16:52 Pulse Oximetry 99 12/28/23 16:52 Oxygen Delivery Me thod Nasal Cannula 12/28/23 16:22 Oxygen Flow Rate 3 12/28/23 15:52 MDM - Weakness Medical Decision Making Patient presents here with some generalized weakness he is well-appearing here vitals are at his baseline heart enzymes are normal no signs of pneumonia he feels improved here he is stable for discharge she is follow-up with PCP and return if worsening. Medical Records I reviewed the patient's medical records. Lab Data I reviewed the patient's lab results. 12/28/23 13:25 12/28/23 16:35 Radiology Impressions Chest X-Ray 12/28/23 14:22 IMPRESSION: No acute findings. Laboratory Results WBC 6.44 10^3/uL (3.29-11.43) 12/28/23 13:25 RBC 4.85 10^6/uL (3.85-5.65) 12/28/23 13:25 Hgb 15.90 g/dL (11.27-16.99) 12/28/23 13:25 Hct 50.9 % (37-53) 12/28/23 13:25 MCV 104.9 fl (82-101) H 12/28/23 13:25 MCH 32.8 pg (27-33) 12/28/23 13:25 MCHC 31.2 g/dL (30-55) 12/28/23 13:25 RDW 14.3 % (12.1-15.1) 12/28/23 13:25 Plt Count 173 10^3/cmm (157-399) 12/28/23 13:25 MPV 11.2 fL (7.4-10.4) H 12/28/23 13:25 Neut % (Auto) 59.5 % 12/28/23 13:25 Lymph % (Auto) 21.1 % 12/28/23 13:25 [place] % (Auto) 16.5 % 12/28/23 13:25 Eos % (Auto) 1.7 % 12/28/23 13:25 Baso % (Auto) 0.9 % 12/28/23 13:25 Neut # (Auto) 3.83 10^3/uL (1.8-7.7) 12/28/23 13:25 Lymph # (Auto) 1.4 10^3/uL (0.8-4.8) 12/28/23 13:25 [place] # (Auto) 1.1 10^3/uL (0.2-0.9) H 12/28/23 13:25 Eos # (Auto) 0.1 10^3/uL (0.0-0.8) 12/28/23 13:25 Baso # (Auto) 0.1 10^3/uL (0.0-0.1) 12/28/23 13:25 Nucleated RBC % (auto) 0 % 12/28/23 13:25 Nucleated RBCs # 0.0 /100WBC 12/28/23 13:25 PT 14.00 SECONDS (12.1-14.9) 12/28/23 15:07 INR 1.05 (0.8-1.2) 12/28/23 15:07 Sodium 136 mmol/L (136-145) 12/28/23 16:35 Potassium 4.6 mmol/L (3.5-5.1) 12/28/23 16:35 Chloride 92 mmol/L (98-107) L 12/28/23 16:35 Carbon Dioxide 39 mmol/L (22-29) H 12/28/23 16:35 Anion Gap 9.6 (5-19) 12/28/23 16:35 BUN 14 mg/dL (8-23) 12/28/23 16:35 Creatinine 0.6 mg/dL (0.7-1.2) L 12/28/23 16:35 GFR Calculation Not Reportable 12/28/23 16:35 Glucose 96 mg/dL (65-115) 12/28/23 16:35 Calculated Osmolality 282 mOsm/kg (285-295) L 12/28/23 16:35 Calcium 8.9 mg/dL (8.5-10.5) 12/28/23 16:35 Total Bilirubin 0.5 mg/dL (0.15-1.2) 12/28/23 16:35 AST 19 U/L (0-40) 12/28/23 16:35 ALT 17 U/L (0-41) 12/28/23 16:35 Alkaline Phosphatase 68 U/L (40-130) 12/28/23 16:35 Troponin T Baseline 22 ng/L (0-15) H 12/28/23 13:25 Troponin T 120 Minute 21.02 ng/L (0-15) H 12/28/23 16:35 Delta Troponin T -0.98 ABS# (0-10) L 12/28/23 16:35 Total Protein 6.1 g/dL (6.6-8.7) L 12/28/23 16:35 Albumin 3.3 g/dL (3.5-5.2) L 12/28/23 16:35 Globulin 2.8 g/dL (1.3-4.6) 12/28/23 16:35 Lipase 17 U/L (13-60) 12/28/23 16:35 All radiology interpretation(s) finalized by discharge EKG Data EKG 1: I personally reviewed and interpreted this EKG as follows: EKG interpretation date: 12/28/23 EKG interpretation time: 14:20 Interpretation: paced hr [address] elevation qrs 156 qtc 456 EKG 2: I personally reviewed and interpreted this EKG as follows: EKG interpretation date: 12/28/23 EKG interpretation time: 16:41 Interpretation: paced hr [address] or t wav abnormalities qrs 158 qtc 459 Discharge Plan Discharge Patient Disposition: Home Clinical Impression: Generalized weakness Condition: Stable Prescriptions: No Action albuterol sulfate 90 mcg/actuation HFA aerosol inhaler 2 puff inhalation QID PRN (Reason: shortness of breath or wheezing) Qty: 8.5 5RF albuterol sulfate 2.5 mg /3 mL (0.083 %) solution for nebulization 2.5 mg inhalation QID PRN (Reason: shortness of breath or wheezing) Qty: 90 5RF aspirin 81 mg tablet,delayed release (DR/EC) 81 mg PO QPM celecoxib 200 mg capsule 200 mg PO QPM trazodone 50 mg tablet 50 mg PO QPM cetirizine 10 mg tablet 10 mg PO QPM simvastatin 20 mg tablet 20 mg PO QPM losartan 25 mg tablet 25 mg PO QPM metoprolol succinate 25 mg tablet extended release 24 hr 25 mg PO QPM Discharge Orders: Discharge ED (Routine); Ordered 12/28/23 Ordered By: Caleb James Referrals: Syl Lewis FNP [Primary Care Provider] - 1-3 days Discharge Diet: Advance as tolerated Discharge Activity: Resume usual activity Patient Instructions: Weakness (ED) Coding Level of Care Code ED Staff Toxicologist for Estelle Brothers
[2023-12-28 15:04] LABS: Basophils # 0.1 10^3/uL (0.0-0.1); Basophils % 0.9 %; Eosinophils # 0.1 10^3/uL (0.0-0.8); Eosinophils % 1.7 %; Hematocrit 50.9 % (37-53); Lymphocytes # 1.4 10^3/uL (0.8-4.8); Lymphocytes % 21.1 %; Mean Corpuscular HGB Conc 31.2 g/dL (30-55); Mean Corpuscular Hemoglobin 32.8 pg (27-33); Mean Corpuscular Volume 104.9 fl (82-101); Mean Platelet Volume 11.2 fL (7.4-10.4); Monocytes # 1.1 10^3/uL (0.2-0.9); Monocytes % 16.5 %; Neutrophils # 3.83 10^3/uL (1.8-7.7); Neutrophils % 59.5 %; Nucleated Red Blood Cells % 0 %; Platelet Count 173 10^3/cmm (157-399); Red Blood Count 4.85 10^6/uL (3.85-5.65); Red Cell Distribution Width 14.3 % (12.1-15.1); White Blood Count 6.44 10^3/uL (3.29-11.43)
[2023-12-28 15:28] LABS: INR 1.05 (0.8-1.2)
[2023-12-28 15:38] LABS: Troponin(5th) Baseline 22 ng/L (0-15)
--- NOTE | 2023-12-28 16:22 | ECG_ITS ---
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 Measurements Intervals [place] Rate: 65 P: 0 TN: 0 QRS: -83 QRSD: 158 T: 92 QT: 448 QTc: 466 Interpretive Statements ELECTRONIC VENTRICULAR PACEMAKER ABNORMAL RHYTHM ECG Compared to ECG 12/28/2023 14:20:56 No significant changes Electronically Signed On 12-28-2023 18:49:42 CDT by Sasha Gordon M.D. [id number]
[2023-12-28 17:10] LABS: Troponin 5 2HR 21.02 ng/L (0-15)
[2023-12-28 17:13] LABS: Alanine Aminotransferase 17 U/L (0-41); Albumin Level 3.3 g/dL (3.5-5.2); Alkaline Phosphatase 68 U/L (40-130); Anion Gap 9.6 (5-19); Aspartate Amino Transferase 19 U/L (0-40); Blood Urea Nitrogen 14 mg/dL (8-23); Calcium 8.9 mg/dL (8.5-10.5); Carbon Dioxide 39 mmol/L (22-29); Chloride 92 mmol/L (98-107); Creatinine Clr Calc Pharmacy 62.8891; Globulin 2.8 g/dL (1.3-4.6); Glucose 96 mg/dL (65-115); Lipase 17 U/L (13-60); Osmolality Calculated 282 mOsm/kg (285-295); Potassium 4.6 mmol/L (3.5-5.1); Sodium 136 mmol/L (136-145); Total Bilirubin 0.5 mg/dL (0.15-1.2); Total Protein 6.1 g/dL (6.6-8.7); Troponin 5 2HR Delta -0.98 ABS# (0-10)
== END 2023-12-28 18:37 | disposition home or self-care (01) ==
PROVIDERS: Emergency Provider Emergency Medicine; PCP Registered Nurse
DX: R53.1 Weakness (principal); Z79.82 Long term (current) use of aspirin; Z72.0 Tobacco use; I10 Essential (primary) hypertension; J44.9 Chronic obstructive pulmonary disease, unspecified; Z86.73 Personal history of transient ischemic attack (TIA), and cerebral infarction without residual deficits; E78.5 Hyperlipidemia, unspecified; Z95.0 Presence of cardiac pacemaker
CPT/HCPCS: 36415; 71045; 80053; 83690; 84484; 85025; 85610; 93005; 99285

== ENCOUNTER 2024-01-05 09:35 | Emergency (ER) | payer MEDICARE, SELFPAY ==
[2024-01-05] VITALS (8 sets, daily range): BP systolic 118–138; BP diastolic 65–91; PULSE 64–69; RESP 17; TEMP 36.7; O2SAT 88–100
--- NOTE | 2024-01-05 09:55 | XR_ITS ---
WS: [id number] Exam: XR chest 1V portable [id number] Date/Time of Exam: 01/05/2024 10:05 AM Reason For Exam: sob Comparison 12/28/2023. The lungs are hyperinflated and clear. Chronic plaque atelectasis in the LEFT base. Chronic interstit ial changes and several pleural plaques noted. Normal heart size. The mediastinum is normal in contou r. Permanent cardiac pacer seen over the LEFT chest. Bony structures are intact. IMPRESSION: 1. Pulmonary hyperinflation and chronic changes. No acute process.
--- NOTE | 2024-01-05 10:03 | ED_ITS ---
HPI - Recheck/Abnormal Lab/Rx 2 General: Chief Complaint: Recheck/Abnormal Lab/Rx Stated Complaint: abnormal labs Time Seen by Provider: 01/05/24 09:52 Source: patient Mode of arrival: ambulatory Limitations: no limitations History of Present Illness: 73-year-old male with a history of COPD is on 2 L oxygen at baseline at home he is currently 95% here on 2 L his reading in triage she was off his oxygen. Patient states that his PCP had called him and told him that his kidney labs were off he is unsure what they were and told him come to the ER. He has no complaints he states he has been feeling at his baseline denies any pain or increasing shortness of breath. Review of Systems 2 Const: Denies: fever(s), chills, body aches or change in appetite Eyes: Denies: blurry vision or eye discomfort ENMT: Denies: throat pain or dental pain Card: Denies: chest pain Resp: Denies: dyspnea GI: Denies: abdominal pain, nausea, vomiting or diarrhea : Denies: dysuria Musc: Denies: neck pain or back pain Skin/Breast: Denies: rash Neuro: Denies: headache(s) PFSH ED 2 PFSH: Medical History Shortness of breath Hypertension Smoking Atrial arrhythmia KYLAH (obstructive sleep apnea) CVA (cerebral vascular accident) Dyslipidemia Osteoarthritis Insomnia Allergic rhinitis Benign essential HTN COPD (chronic obstructive pulmonary disease) Pacemaker Hx of cardiac pacemaker Surgical History History of ear surgery History of inguinal hernia repair Right History of lung surgery Right lung repair Family History Family/Other Cancer Patient had 2 nephews pass away of cancer Brother Cancer Other Hypertension Denies family history of Diabetes CAD (coronary artery disease) Clotting disorder Dementia Chronic kidney disease (CKD) Suicide Anesthesia complication Bleeding disorder Lung disease Stroke Social History Smoking and tobacco/nicotine status: current every day tobacco/nicotine user Quit status (tobacco/nicotine): considering quitting Alcohol intake: current Alcohol intake frequency: 0-2 Drinks per Day Substance/Drug Use: never Lives independently: No Household members: family Housing: House Marital status: Legally Number of children: 3 Number of grandchildren: 8 Highest education level completed: 9th Grade service: No Current occupational status: retired Physical Exam 2 Const: COMMON NORMALS: patient oriented x3 HENMT: COMMON NORMALS: normocephalic and atraumatic HEAD & SCALP: n ormocephalic and atraumatic Eye: COMMON NORMALS: Equal, round and reactive pupils present and EOMs intact bilaterally PUPIL: Yes Equal, round and reactive pupils present Neck/C-Spine: COMMON NORMALS: full ROM and supple Chest: COMMONS NORMALS: normal inspection of the chest and normal palpation of entire chest wall Resp: COMMON NORMALS: normal respiratory effort, No retractions, No use of accessory muscles and clear to auscultation bilaterally AUSCULTATION: clear to auscultation bilaterally Cardio: COMMON NORMALS: regular rate, regular rhythm and No murmurs present (Cardio) RATE: regular rate RHYTHM: regular rhythm GI: COMMON NORMALS: Normal to inspection, nondistended, normoactive bowel sounds present, Soft to palpation, non-tender and no masses PALPATION: Yes Soft to palpation Extremity: COMMON NORMALS: normal to inspection and full ROM Neuro: COMMON NORMALS: patient oriented x3, moves all extremities and no focal motor deficits Psych: COMMON NORMALS: mental status grossly normal, Normal thought process present and cooperative THOUGHT PROCESS: Normal thought process present Skin: COMMON NORMALS: no rashes or lesions noted and no wounds GENERAL SKIN EXAM: no rashes or lesions noted Course 2 Vital Signs: Vital signs: Vital Signs Temperature 98.1 F 01/05/24 09:38 Pulse Rate 68 01/05/24 12:56 Respiratory Rate 17 01/05/24 09:38 Blood Pressure 121/69 01/05/24 12:56 Pulse Oximetry 100 01/05/24 12:56 Oxygen Delivery Me thod Nasal Cannula 01/05/24 09:38 Oxygen Flow Rate 8 01/05/24 09:38 MDM - Recheck/Abnormal Lab/Rx Medical Decision Making Patient presents with concern for an elevated creatinine his creatinine here is normal he does have an elevated BNP as well no signs of heart failure here no fluid overload he given 1 dose of Lasix he is to follow-up with PCP for further workup return if worsening he is at his baseline on respiratory status. Medical Records I reviewed the patient's medical records. Lab Data I reviewed the patient's lab results. 01/05/24 13:18 01/05/24 11:54 Laboratory Results WBC 6.00 10^3/uL (3.29-11.43) 01/05/24 13:18 Corrected WBC Cancelled 01/05/24 11:01 RBC 5.25 10^6/uL (3.85-5.65) 01/05/24 13:18 Hgb 17.10 g/dL (11.27-16.99) H 01/05/24 13:18 Hct 53.9 % (37-53) H 01/05/24 13:18 MCV 102.7 fl (82-101) H 01/05/24 13:18 MCH 32.6 pg (27-33) 01/05/24 13:18 MCHC 31.7 g/dL (30-55) 01/05/24 13:18 RDW 13.9 % (12.1-15.1) 01/05/24 13:18 Plt Count 154 10^3/cmm (157-399) L 01/05/24 13:18 MPV 11.0 fL (7.4-10.4) H 01/05/24 13:18 Gran % Cancelled 01/05/24 11:01 Neut % (Auto) 72.0 % 01/05/24 13:18 Lymph % (Auto) 13.7 % 01/05/24 13:18 [place] % (Auto) 12.5 % 01/05/24 13:18 Eos % (Auto) 0.7 % 01/05/24 13:18 Baso % (Auto) 0.8 % 01/05/24 13:18 Neut # (Auto) 4.32 10^3/uL (1.8-7.7) 01/05/24 13:18 Lymph # (Auto) 0.8 10^3/uL (0.8-4.8) 01/05/24 13:18 [place] # (Auto) 0.8 10^3/uL (0.2-0.9) 01/05/24 13:18 Eos # (Auto) 0.0 10^3/uL (0.0-0.8) 01/05/24 13:18 Baso # (Auto) 0.1 10^3/uL (0.0-0.1) 01/05/24 13:18 Absolute Gran (auto) Cancelled 01/05/24 11:01 Nucleated RBC % (auto) 0 % 01/05/24 13:18 Nucleated RBCs # 0.0 /100WBC 01/05/24 13:18 Sodium 132 mmol/L (136-145) L 01/05/24 11:54 Potassium 5.0 mmol/L (3.5-5.1) 01/05/24 11:54 Chloride 92 mmol/L (98-107) L 01/05/24 11:54 Carbon Dioxide 33 mmol/L (22-29) H 01/05/24 11:54 Anion Gap 12.0 (5-19) 01/05/24 11:54 BUN 18 mg/dL (8-23) 01/05/24 11:54 Creatinine 0.7 mg/dL (0.7-1.2) 01/05/24 11:54 GFR Calculation Not Reportable 01/05/24 11:54 Glucose 99 mg/dL (65-115) 01/05/24 11:54 Calculated Osmolality 276 mOsm/kg (285-295) L 01/05/24 11:54 Calcium 9.1 mg/dL (8.5-10.5) 01/05/24 11:54 Total Bilirubin 0.8 mg/dL (0.15-1.2) 01/05/24 11:54 AST 172 U/L (0-40) H 01/05/24 11:54 ALT 301 U/L (0-41) H 01/05/24 11:54 Alkaline Phosphatase 74 U/L (40-130) 01/05/24 11:54 NT-Pro-B Natriuret Pep 2625 pg/mL (0-125) H 01/05/24 11:54 Total Protein 6.9 g/dL (6.6-8.7) 01/05/24 11:54 Albumin 3.1 g/dL (3.5-5.2) L 01/05/24 11:54 Globulin 3.8 g/dL (1.3-4.6) 01/05/24 11:54 All radiology interpretation(s) finalized by discharge EKG Data EKG 1: I personally reviewed and interpreted this EKG as follows: EKG interpretation date: 01/05/24 EKG interpretation time: 11:22 Interpretation: paced hr [address] or t wave abnormalities qrs 162 qtc 456 Discharge Plan Discharge Patient Disposition: Home Clinical Impression: Elevated brain natriuretic peptide (BNP) level Condition: Stable Prescriptions: No Action albuterol sulfate 90 mcg/actuation HFA aerosol inhaler 2 puff inhalation QID PRN (Reason: shortness of breath or wheezing) Qty: 8.5 5RF albuterol sulfate 2.5 mg /3 mL (0.083 %) solution for nebulization 2.5 mg inhalation QID PRN (Reason: shortness of breath or wheezing) Qty: 90 5RF aspirin 81 mg tablet,delayed release (DR/EC) 81 mg PO QPM celecoxib 200 mg capsule 200 mg PO QPM trazodone 50 mg tablet 50 mg PO QPM simvastatin 20 mg tablet 20 mg PO QPM losartan 25 mg tablet 25 mg PO QPM metoprolol succinate 25 mg tablet extended release 24 hr 25 mg PO QPM Discharge Orders: Discharge ED (Routine); Ordered 01/05/24 Ordered By: Caleb James Referrals: Syl Lewis FNP [Primary Care Provider] - Discharge Diet: Advance as tolerated Discharge Activity: Resume usual activity Patient Instructions: Heart Failure (ED) Coding Level of Care Code 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
--- NOTE | 2024-01-05 11:22 | ECG_ITS ---
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 Measurements Intervals [place] Rate: 65 P: 0 ND: 0 QRS: -87 QRSD: 162 T: 74 QT: 445 QTc: 463 Interpretive Statements ELECTRONIC VENTRICULAR PACEMAKER Compared to ECG 12/28/2023 16:41:36 No significant changes Electronically Signed On 01-05-2024 11:46:42 CDT by Aiden Glover M.D. [id number]
[2024-01-05 13:23] LABS: Basophils # 0.1 10^3/uL (0.0-0.1); Basophils % 0.8 %; Eosinophils % 0.7 %; Hematocrit 53.9 % (37-53); Lymphocytes # 0.8 10^3/uL (0.8-4.8); Lymphocytes % 13.7 %; Mean Corpuscular HGB Conc 31.7 g/dL (30-55); Mean Corpuscular Hemoglobin 32.6 pg (27-33); Mean Corpuscular Volume 102.7 fl (82-101); Monocytes # 0.8 10^3/uL (0.2-0.9); Monocytes % 12.5 %; Neutrophils # 4.32 10^3/uL (1.8-7.7); Nucleated Red Blood Cells % 0 %; Platelet Count 154 10^3/cmm (157-399); Red Blood Count 5.25 10^6/uL (3.85-5.65); Red Cell Distribution Width 13.9 % (12.1-15.1)
[2024-01-05 13:26] LABS: Alanine Aminotransferase 301 U/L (0-41); Albumin Level 3.1 g/dL (3.5-5.2); Alkaline Phosphatase 74 U/L (40-130); Blood Urea Nitrogen 18 mg/dL (8-23); Calcium 9.1 mg/dL (8.5-10.5); Carbon Dioxide 33 mmol/L (22-29); Chloride 92 mmol/L (98-107); Globulin 3.8 g/dL (1.3-4.6); Glucose 99 mg/dL (65-115); NT Pro B Type Natriuretic Pept 2625 pg/mL (0-125); Osmolality Calculated 276 mOsm/kg (285-295); Sodium 132 mmol/L (136-145); Total Bilirubin 0.8 mg/dL (0.15-1.2); Total Protein 6.9 g/dL (6.6-8.7)
[2024-01-05 13:34] LABS: Aspartate Amino Transferase 172 U/L (0-40)
== END 2024-01-05 14:13 | disposition home or self-care (01) ==
PROVIDERS: Emergency Provider Emergency Medicine; PCP Registered Nurse
DX: R79.89 Other specified abnormal findings of blood chemistry (principal); Z79.82 Long term (current) use of aspirin; Z72.0 Tobacco use; I10 Essential (primary) hypertension; Z86.73 Personal history of transient ischemic attack (TIA), and cerebral infarction without residual deficits; E78.5 Hyperlipidemia, unspecified; J44.9 Chronic obstructive pulmonary disease, unspecified; Z95.0 Presence of cardiac pacemaker
CPT/HCPCS: 36415; 71045; 80053; 83880; 85025; 93005; 99285

== ENCOUNTER 2024-02-05 19:20 | Emergency (ER) | payer MEDICARE, SELFPAY ==
--- NOTE | 2024-02-05 19:22 | XRR_ITS ---
PROCEDURE INFORMATION: Exam: XR Chest Exam date and time: 02/05/2024 7:30 PM Age: 73 years old Clinical indication: Shortness of breath; Patient HX: SOB; HX pacemaker; Course lt lung sounds TECHNIQUE: Imaging protocol: Radiologic exam of the chest. Views: 1 view. COMPARISON: 1. CT scan of chest 12/30/2021 2. CR XR chest 1V portable [id number] 01/05/2024 10:26 AM FINDINGS: Tubes, catheters and devices: Transvenous pacer leads are satisfactory location. Lungs: There is lung emphysema. Stable ovoid nodule medial right upper lobe. Pleural spaces: Unremarkable. No pleural effusion. No pneumothorax. Heart/Mediastinum: Unremarkable. No cardiomegaly. Bones/joints: Unremarkable. XR/XR chest 1V portable [id number] IMPRESSION: No acute findings.
--- NOTE | 2024-02-05 19:23 | W.ED.SOB ---
HPI - SOB/Dyspnea General: Chief Complaint: Shortness of Breath/Dyspnea Stated Complaint: SOB Time Seen by Provider: 02/05/24 19:21 History of Present Illness: HPI Narrative: 73-year-old man with a history of tobacco dependence and COPD with chronic hypoxemic respiratory failure on 2 L nasal cannula at all times who presents the emergency room with worsening shortness of breath. He says that started yesterday and became worse today. He was seen in the emergency room a few days back and was sent home. He reports no fevers. No chest pain. No altered mental status. No increased oxygen requirements. He is 92% on 2.5 L on presentation at the emergency room. No lower extremity swelling. He has history of a pacemaker and he says he is on a blood thinner but I do not see one in his medication list. Review of Systems Narrative: Constitutional symptoms: Negative except as documented in HPI. Skin symptoms: Negative except as documented in HPI. Eye symptoms: Negative except as documented in HPI. ENMT symptoms: Negative except as documented in HPI. Respiratory symptoms: Negative except as documented in HPI. Cardiovascular symptoms: Negative except as documented in HPI. Gastrointestinal symptoms: Negative except as documented in HPI. Genitourinary symptoms: Negative except as documented in HPI. Musculoskeletal symptoms: Negative except as documented in HPI. Neurologic symptoms: Negative except as documented in HPI. Psychiatric symptoms: Negative except as documented in HPI. Endocrine symptoms: Negative except as documented in HPI. PFS ED PFSH: Medical History Shortness of breath Hypertension Smoking Atrial arrhythmia KYLAH (obstructive sleep apnea) CVA (cerebral vascular accident) Dyslipidemia Osteoarthritis Insomnia Allergic rhinitis Benign essential HTN COPD (chronic obstructive pulmonary disease) Pacemaker Hx of cardiac pacemaker Surgical History History of ear surgery History of inguinal hernia repair Right History of lung surgery Right lung repair Family History Family/Other Cancer Patient had 2 nephews pass away of cancer Brother Cancer Other Hypertension Denies family history of Diabetes CAD (coronary artery disease) Clotting disorder Dementia Chronic kidney disease (CKD) Suicide Anesthesia complication Bleeding disorder Lung disease Stroke Social History Smoking and tobacco/nicotine status: current every day tobacco/nicotine user Quit status (tobacco/nicotine): considering quitting Alcohol intake: current Alcohol intake frequency: 0-2 Drinks per Day Substance/Drug Use: never Lives independently: No Household members: family Housing: House Marital status: Legally Number of children: 3 Number of grandchildren: 8 Highest education level completed: 9th Grade service: No Current occupational status: retired Physical Exam Narrative: EXAM NARRATIVE: General: Alert, no acute distress. Skin: Warm, dry. Head: Normocephalic, atraumatic. Neck: Supple, trachea midline. Eye: Extraocular movements are intact. Ears, nose, mouth and throat: Oral mucosa moist. Cardiovascular: Regular rate and rhythm, Normal peripheral perfusion. Respiratory: coarse, scattered wheeze, mild increased wob. tachypnea, breath sounds are equal, Symmetrical chest wall expansion. Gastrointestinal: Soft, Nontender, Non distended, Normal bowel sounds. Musculoskeletal: Normal ROM, no deformity. Neurological: Alert and oriented to person, place, time, and situation, No focal neurological deficit observed. Psychiatric: Cooperative, appropriate mood & affect. Course Vital Signs: Vital signs: Vital Signs Temperature 98.7 F 02/05/24 19:34 Pulse Rate 73 02/05/24 20:01 Respiratory Rate 31 H 02/05/24 20:01 Blood Pressure 134/80 02/05/24 20:01 Pulse Oximetry 94 02/05/24 20:01 Oxygen Delivery Me thod Nasal Cannula 02/05/24 20:01 Oxygen Flow Rate 2.5 02/05/24 19:45 MDM - SOB/Dyspnea Medical Decision Making Differential diagnosis for patient with shortness of breath includes but is not limited to and based on the above HPI, review of systems and physical exam: Pneumonia. Bronchitis. Asthma or COPD with acute exacerbation. Acute coronary syndrome / [place]. Pulmonary embolism. Anxiety. Congestive heart failure. Viral infections including influenza and Covid-19. Atrial fibrillation. Anxiety. Pleural effusion. Pneumothorax. Workup: Lab work, chest X-ray and EKG ordered to evaluate, rule in and rule out above pathologies Chest x-ray: Emphysematous changes, pacemaker in place on the left with wires appearing in place. No acute process. No infiltrate. No pneumothorax. No cardiomegaly. This was reviewed and interpreted by myself the ER physician. EKG: Time 1933 rate 73 time Normal sinus rhythm, No ST-T changes, no ectopy, paced rhythm, this was reviewed and interpreted by myself the emergency room physician at 1935 AB.4 . His pCO2 is up from 51 on a previous ABG Lab Review: Laboratory results were reviewed and interpreted by myself the emergency room physician. Lab work is fairly unremarkable. White count is 9. Hemoglobin is 11.7. BUN and creatinine are 9 and 0.3. His proBNP is 1500 which is down a little bit from the last time and seems to be about where he lives. I reviewed the patient's medical record. Reexamination: Patient says he feels quite a bit better after a couple of breathing treatments. And Solu-Medrol. He wants to go home. No increased work of breathing. No increased oxygen requirements. No altered mental status. No focal motor deficits. Assessment and plan: COPD with acute exacerbation Chronic hypoxemic respiratory failure -IV Solu-Medrol and 2 updrafts in the emergency room - Discharged home - Discussed plan with patient. Answered any questions. - Evaluation and treatment of this problem were appropriate in the emergency setting. Lab Data 02/05/24 19:41 02/05/24 19:41 Labs/Radiology: Laboratory Results WBC 9.36 10^3/uL (3.29-11.43) 02/05/24 19:41 RBC 3.64 10^6/uL (3.85-5.65) L 02/05/24 19:41 Hgb 11.70 g/dL (11.27-16.99) 02/05/24 19:41 Hct 36.6 % (37-53) L 02/05/24 19:41 MCV 100.5 fl (82-101) 02/05/24 19:41 MCH 32.1 pg (27-33) 02/05/24 19:41 MCHC 32.0 g/dL (30-55) 02/05/24 19:41 RDW 12.8 % (12.1-15.1) 02/05/24 19:41 Plt Count 185 10^3/cmm (157-399) 02/05/24 19:41 MPV 10.4 fL (7.4-10.4) 02/05/24 19:41 Neut % (Auto) 72.9 % 02/05/24 19:41 Lymph % (Auto) 11.6 % 02/05/24 19:41 [place] % (Auto) 13.7 % 02/05/24 19:41 Eos % (Auto) 0.9 % 02/05/24 19:41 Baso % (Auto) 0.6 % 02/05/24 19:41 Neut # (Auto) 6.82 10^3/uL (1.8-7.7) 02/05/24 19:41 Lymph # (Auto) 1.1 10^3/uL (0.8-4.8) 02/05/24 19:41 [place] # (Auto) 1.3 10^3/uL (0.2-0.9) H 02/05/24 19:41 Eos # (Auto) 0.1 10^3/uL (0.0-0.8) 02/05/24 19:41 Baso # (Auto) 0.1 10^3/uL (0.0-0.1) 02/05/24 19:41 Nucleated RBC % (auto) 0 % 02/05/24 19:41 Nucleated RBCs # 0.0 /100WBC 02/05/24 19:41 Specimen Type Arterial 02/05/24 19:33 Sample Site Radial, left 02/05/24 19:33 ABG pH 7.42 (7.35-7.45) 02/05/24 19:33 ABG pCO2 59.0 mmHg (35-45) H 02/05/24 19:33 ABG pO2 60.2 mmHg (80.0-100.0) L 02/05/24 19:33 ABG HCO3 38.1 mmol/L (22-26) H 02/05/24 19:33 ABG O2 Saturation 93.8 02/05/24 19:33 ABG Base Excess 11.4 mmol/L (-2.0-2.0) H 02/05/24 19:33 Joesph Test Pos 02/05/24 19:33 A-a O2 Gradient 2.3 mmHg (5-10) L 02/05/24 19:33 Hematocrit 37.5 % (42-52) L 02/05/24 19:33 Hgb O2 Saturation 88.0 % (95-100) L 02/05/24 19:33 Carboxyhemoglobin 5.5 %THgb (0.4-20.1) 02/05/24 19:33 Methemoglobin 0.7 % (0.4-1.5) 02/05/24 19:33 Total Hemoglobin 12.2 g/dL (14-18) L 02/05/24 19:33 Sodium 134.0 mmol/L (131-143) 02/05/24 19:33 Potassium 3.5 mmol/L (3.5-5.0) 02/05/24 19:33 Glucose 120.0 mg/dL (70-115) H 02/05/24 19:33 Ionized Calcium 1.2 mmol/L (1.1-1.4) 02/05/24 19:33 O2 Delivery Device Nc 02/05/24 19:33 O2 Liters/Min 2.5 % 02/05/24 19:33 Swimming Pool Installer And Servicer ID [email or web address] 02/05/24 19:33 Sodium 134 mmol/L (136-145) L 02/05/24 19:41 Potassium 3.7 mmol/L (3.5-5.1) 02/05/24 19:41 Chloride 94 mmol/L (98-107) L 02/05/24 19:41 Carbon Dioxide 34 mmol/L (22-29) H 02/05/24 19:41 Anion Gap 9.7 (5-19) 02/05/24 19:41 BUN 9 mg/dL (8-23) 02/05/24 19:41 Creatinine 0.3 mg/dL (0.7-1.2) L 02/05/24 19:41 GFR Calculation Not Reportable 02/05/24 19:41 Glucose 122 mg/dL (65-115) H 02/05/24 19:41 Calculated Osmolality 278 mOsm/kg (285-295) L 02/05/24 19:41 Calcium 8.4 mg/dL (8.5-10.5) L 02/05/24 19:41 Total Bilirubin 0.4 mg/dL (0.15-1.2) 02/05/24 19:41 AST 30 U/L (0-40) 02/05/24 19:41 ALT 31 U/L (0-41) 02/05/24 19:41 Alkaline Phosphatase 96 U/L (40-130) 02/05/24 19:41 Troponin T Baseline 10 ng/L (0-15) 02/05/24 19:41 C-Reactive Protein 4.6 mg/L (0.0-4.9) 02/05/24 19:41 NT-Pro-B Natriuret Pep 1549 pg/mL (0-125) H 02/05/24 19:41 Total Protein 7.1 g/dL (6.6-8.7) 02/05/24 19:41 Albumin 3.7 g/dL (3.5-5.2) 02/05/24 19:41 Globulin 3.4 g/dL (1.3-4.6) 02/05/24 19:41 All radiology interpretation(s) finalized by discharge Discharge Plan Discharge Patient Disposition: Home Clinical Impression: Acute exacerbation of chronic obstructive airways disease, Chronic hypoxic respiratory failure Condition: Stable Prescriptions: New Zithromax Z-Francois 250 mg tablet See Rx Instructions .ROUTE .COMPLEX Qty: 6 0RF Rx Instructions: For 250 mg dose pack: take 500 mg today (day 1), then 250 mg for 4 days (days 2-5) prednisone 20 mg tablet 40 mg PO DAILY 5 Days Qty: 10 0RF No Action albuterol sulfate 90 mcg/actuation HFA aerosol inhaler 2 puff inhalation QID PRN (Reason: shortness of breath or wheezing) Qty: 8.5 5RF albuterol sulfate 2.5 mg /3 mL (0.083 %) solution for nebulization 2.5 mg inhalation QID PRN (Reason: shortness of breath or wheezing) Qty: 90 5RF aspirin 81 mg tablet,delayed release (DR/EC) 81 mg PO QPM celecoxib 200 mg capsule 200 mg PO QPM trazodone 50 mg tablet 50 mg PO QPM simvastatin 20 mg tablet 20 mg PO QPM losartan 25 mg tablet 25 mg PO QPM metoprolol succinate 25 mg tablet extended release 24 hr 25 mg PO QPM Discharge Orders: Discharge ED (Routine); Ordered 02/05/24 Ordered By: Winnie Lemus Referrals: Syl Lewis, PRECISE WINDER [Primary Care Provider] - Discharge Diet: Usual diet Discharge Activity: Increase activity as tolerated Patient Instructions: Opioid Safety, Pain Management Activity Restrictions/Additional Instructions: Thank you for choosing [facility] for your healthcare needs today. Please realize this is an emergency room and that we are providing you with a medical screening exam and this may not be complete and all inclusive of all the testing and or work up that you may need to determine your ailment or severity of your illness. You have been screened and evaluated and felt safe for discharge. Health conditions do change or evolve sometimes and as such it is important that you follow up with your Primary Doctor to be re checked, 3-5 days is a general good time frame for follow up. 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
[2024-02-05 19:34] VITALS: BP 135/90; PULSE 76; RESP 22; TEMP 37.1; O2SAT 92; BMI 13.3
--- NOTE | 2024-02-05 19:34 | ECG_ITS ---
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 Measurements Intervals [place] Rate: 73 P: 73 MA: 240 QRS: -84 QRSD: 166 T: 84 QT: 435 QTc: 482 Interpretive Statements ELECTRONIC VENTRICULAR PACEMAKER Compared to ECG 01/05/2024 11:22:10 No significant changes Electronically Signed On 02-06-2024 12:53:33 CDT by Aiden Glover M.D. [id number]
[2024-02-05] MEDS: methylPREDNISolone sod succ 125 mg/2 mL INJ IVP (19:40)
[2024-02-05 19:44] LABS: ABG PH Result 7.42 (7.35-7.45); Alveolar-Arterial Oxygen Gradi 2.3 mmHg (5-10); Arterial Blood Gas Hematocrit 37.5 % (42-52); Base Excess ABG 11.4 mmol/L (-2.0-2.0); Blood Gas Allen Test Pos; Blood Gas LPM 2.5 %; Blood Gas Sample Site Radial, left; Blood Gas Sample Type Arterial; Carboxyhemoglobin 5.5 %THgb (0.4-20.1); HCO3 ABG 38.1 mmol/L (22-26); Ionized Calcium Level - ABG 1.2 mmol/L (1.1-1.4); Methemoglobin 0.7 % (0.4-1.5); Oxygen Device NC; Oxygen Saturation ABG 93.8; PO2 ABG 60.2 mmHg (80.0-100.0); Potassium Level - ABG 3.5 mmol/L (3.5-5.0); Total Hemoglobin 12.2 g/dL (14-18)
[2024-02-05 19:45] VITALS: PULSE 75; RESP 19; O2SAT 94
[2024-02-05] MEDS: ipratropium-albuterol 3 mL Neb INHALATION (19:45)
[2024-02-05] MEDS: albuterol 2.5 mg/3 mL Neb INHALATION (19:45)
[2024-02-05 19:46] VITALS: BP 135/90; PULSE 74; RESP 25; O2SAT 94
[2024-02-05 19:49] LABS: Basophils # 0.1 10^3/uL (0.0-0.1); Basophils % 0.6 %; Eosinophils # 0.1 10^3/uL (0.0-0.8); Eosinophils % 0.9 %; Hematocrit 36.6 % (37-53); Lymphocytes # 1.1 10^3/uL (0.8-4.8); Lymphocytes % 11.6 %; Mean Corpuscular Hemoglobin 32.1 pg (27-33); Mean Corpuscular Volume 100.5 fl (82-101); Mean Platelet Volume 10.4 fL (7.4-10.4); Monocytes # 1.3 10^3/uL (0.2-0.9); Monocytes % 13.7 %; Neutrophils # 6.82 10^3/uL (1.8-7.7); Neutrophils % 72.9 %; Nucleated Red Blood Cells % 0 %; Platelet Count 185 10^3/cmm (157-399); Red Blood Count 3.64 10^6/uL (3.85-5.65); Red Cell Distribution Width 12.8 % (12.1-15.1); White Blood Count 9.36 10^3/uL (3.29-11.43)
[2024-02-05 20:01] VITALS: BP 134/80; PULSE 73; RESP 31; O2SAT 94
[2024-02-05 20:23] LABS: Alanine Aminotransferase 31 U/L (0-41); Albumin Level 3.7 g/dL (3.5-5.2); Alkaline Phosphatase 96 U/L (40-130); Anion Gap 9.7 (5-19); Aspartate Amino Transferase 30 U/L (0-40); Blood Urea Nitrogen 9 mg/dL (8-23); C Reactive Protein 4.6 mg/L (0.0-4.9); Calcium 8.4 mg/dL (8.5-10.5); Carbon Dioxide 34 mmol/L (22-29); Chloride 94 mmol/L (98-107); Creatinine Clr Calc Pharmacy 46.7764; Globulin 3.4 g/dL (1.3-4.6); Glucose 122 mg/dL (65-115); NT Pro B Type Natriuretic Pept 1549 pg/mL (0-125); Osmolality Calculated 278 mOsm/kg (285-295); Potassium 3.7 mmol/L (3.5-5.1); Sodium 134 mmol/L (136-145); Total Bilirubin 0.4 mg/dL (0.15-1.2); Total Protein 7.1 g/dL (6.6-8.7)
[2024-02-05 20:36] LABS: Troponin(5th) Baseline 10 ng/L (0-15)
[2024-02-05 20:48] VITALS: BP 151/83; PULSE 76; RESP 27; TEMP 37.1; O2SAT 97
== END 2024-02-05 20:49 | disposition home or self-care (01) ==
PROVIDERS: Emergency Provider Emergency Medicine; PCP Registered Nurse
DX: J44.1 Chronic obstructive pulmonary disease with (acute) exacerbation (principal); J96.11 Chronic respiratory failure with hypoxia; Z79.82 Long term (current) use of aspirin; Z72.0 Tobacco use; I10 Essential (primary) hypertension; Z86.73 Personal history of transient ischemic attack (TIA), and cerebral infarction without residual deficits; E78.5 Hyperlipidemia, unspecified; Z95.0 Presence of cardiac pacemaker
CPT/HCPCS: 36600; 71045; 80051; 80053; 82330; 82805; 83880; 84484; 85025; 86140; 93005; 94640; 96374; 99285; J2919; J7613